=== PATIENT | female | born 1975 | race Caucasian/White ===

== ENCOUNTER 2018-02-22 14:47 | Outpatient (CLI) | payer OTHER, SELFPAY ==
--- NOTE | 2018-02-22 15:34 | DI.MAMMO_ITS ---
SYMPTOM/DIAGNOSIS: SCREENING, FAMILY H/O BREAST AND OVARIAN CA MAMMOGRAMS: Mammograms were interpreted according to the usual protocol including computer analysis with CAD system, tomosynthesis and C view imaging. Comparison is made with prior examinations. Breast density, Category B. No masses or microcalcifications are seen. There is nothing to suggest malignancy. IMPRESSION: Negative mammogram. Routine screening is recommended. Category 1. MQSA ASSESSMENT OF FINDINGS: Negative. Category 1. Patient will receive a letter notifying them of these results. BI-RADS category B. There are scattered areas of fibroglandular density.
== END 2018-02-22 15:07 ==
PROVIDERS: PCP Student in an Organized Health Care Education/Training Program; Visit Provider Student in an Organized Health Care Education/Training Program
DX: Z12.31 Encounter for screening mammogram for malignant neoplasm of breast (principal); Z80.3 Family history of malignant neoplasm of breast; Z80.41 Family history of malignant neoplasm of ovary
CPT/HCPCS: 77063; 77067

== ENCOUNTER 2018-07-20 09:13 | Emergency (ER) | payer MEDICAID, SELFPAY ==
--- NOTE | 2018-07-20 09:19 | NUR.NOTE ---
pt states that she has a nervice picking habit. she picked a sore on the right cheek the other day and notices that it has gotten reddened and swollen
[2018-07-20 09:20] VITALS: BP 171/91; PULSE 94; RESP 18; TEMP 37; O2SAT 98
--- NOTE | 2018-07-20 09:20 | ED.GENADUL_ITS ---
Discharge Plan Disposition Patient Disposition: HOME Condition: Good Discharge Details Chief Complaint: GenMedical Clinical Impression: Cellulitis Primary Care Provider: Monica Billy ED Provider: Chris Alcaraz Home Meds and New Rx's Prescriptions: New doxycycline hyclate 100 mg tablet,delayed release (DR/EC) 100 mg PO BID 10 Days Qty: 20 RF: 0 mupirocin 2 % ointment 1 applic TP TID Qty: 15 RF: 0 No Action metformin 500 MG tablet 500 mg PO BID RF: 0 levothyroxine 100 MCG tablet 100 mcg PO DAILY RF: 0 bupropion HCl 150 MG tablet extended release 24 hr 150 mg PO BID RF: 0 losartan 50 MG tablet 1 tab PO DAILY RF: 0 glipizide 5 MG tablet 1 tab PO DAILY RF: 0 Discharge Instructions Instructions: Cellulitis (ED) Additional Instructions: Please take the antibiotic as directed. Please apply the cream 3 times daily as directed. Please keep your nails clipped short, and please stop trying to scrat ch at the areas of infection as this may make it worse. If you notice any worsening of your symptoms, or any new symptoms such as vomiting, diarrhea, fever, chills, shortness of breath, chest pain, numbness, weakness, or fainting , please return immediately to the emergency department for reevaluation. Please follow up with your primary care provider as soon as possible for reassessment and reevaluation. As always, it was a pleasure participating in your medical care today. Referrals: Monica Billy [Primary Care Provider] - Medical Decision Making This is a pleasant 42-year-old female who presents for evaluation of a small sore on the right side of her face. She has a nervous tic, and so she picks at her face often. Physical exam demonstrates a small cellulitic lesion on her right cheek, in addition to a few other small scabbed lesions on her face. She does not use methamphetamines. Nails are bitten, but otherwise relatively short. Fingers are clean. Exam demonstrates no evidence of abscess, but there is mild cellulitis. Minimal crusting around all lesions concerning for mild impetigo. Vital signs are stable and reassuring with no evidence of sepsis. With no signs of an abscess there is no indication for incision and drainage at this time. We will prescribe topical mupirocin, as well as oral doxycycline. I have chosen doxycycline over Bactrim since the patient is on an GISELE/arb, and worried about potential interaction. We discussed the importance of stopping scratching, the importance of closely trim nails, and the importance of medication adherence and close follow-up. We discussed red flags which return I have extensively reviewed the treatment plan and discharge instructions with the patient. I have addressed all patient concerns at this time. The patient was made aware of what symptoms to monitor for that would warrant a return to the emergency department. Discussed the plan with the patient, they demonstrate verbal understanding and agreement with our assessment and plan at this time. . HPI General Date/Time Provider Initiated Documentation: 07/20/18 09:17 . HPI Narrative: This is a 42-year-old female with a past medical history of a nervous tic where she scratches her face, who presents today with a small area of infection on the right side of her cheek. Patient states she has had these before, this 1 is gotten worse over the last 1-2 days. She denies any significant discharge, fever, chills, headache, chest pain, shortness of breath, numbness tingling, weakness, vomiting or diarrhea. She denies any other modifying factors. She has not been on antibiotics recently. No other complaints at this time. Related Data Home Medications Medication Instructions Recorded Confirmed bupropion HCl 150 mg PO BID 08/31/13 07/20/18 levothyroxine 100 mcg PO DAILY 08/31/13 07/20/18 metformin 500 mg PO BID 08/31/13 07/20/18 glipizide 1 tab PO DAILY 03/18/15 07/20/18 losartan 1 tab PO DAILY 03/18/15 07/20/18 doxycycline hyclate 100 mg PO BID 10 Days #20 tab 07/20/18 mupirocin 1 applic TP TID #15 gm 07/20/18 Previous Rx's Medication Instructions Recorded doxycycline hyclate 100 mg PO BID 10 Days #20 tab 07/20/18 mupirocin 1 applic TP TID #15 gm 07/20/18 Allergies Allergy/AdvReac Type Severity Reaction Status Date / Time lisinopril AdvReac Mild cough Unverified 07/20/18 09:22 Review of Systems Review of Systems All systems reviewed & are unremarkable except as noted in HPI and below PFSH Social History Smoking/Tobacco Use Status: Never Alcohol Intake: never Drug use: Never Substance use type: does not use Do you feel safe at home: Yes Do you feel safe in your relationship?: Yes Exam Narrative Exam Narrative: 1.Const: Well-nourished, Well-developed, appearing stated age 2.Eyes: PERRL, no conjunctival injection, and symmetrical lids. 3.ENT: Atraumatic external nose and ears. Moist MM. Neck: Symmetric, trachea midline, No thyromegaly. 4.CVS: +S1/S2, No murmurs or gallops. Peripheral pulses 2+ and equal in all extremities. Brisk capillary refill in all extremities. 5.RESP: Unlabored respiratory effort. Clear to auscultation bilaterally. No wheezes rales or rhonchi 6.GI: Soft, Nontender/Nondistended, No hepatosplenomegaly. No guarding or tres ound. 7.MSK: Normocephalic/Atraumatic, Extremities w/o deformity or ttp No cyanosis or clubbing, Normal movement of all extremities 8.Skin: Warm, Dry. A few small scabbed over lesions on the face, a small area of erythema, redness and firmness on the right cheek, no evidence of fluctuance. No evidence of abscess or discharge. Diameter is roughly 1.5-2 cm. No spreading of the redness over the rest of the face. 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 Sensation grossly intact, no focal neurologic deficits. 10.Psych: (AAO) x3. Appropriate mood and affect
[2018-07-20 09:30] VITALS: BP 171/91; PULSE 94; RESP 18; TEMP 37; O2SAT 98
== END 2018-07-20 09:30 | disposition home or self-care (01) ==
LOC: ER 09:23
PROVIDERS: Emergency Provider Student in an Organized Health Care Education/Training Program; PCP Student in an Organized Health Care Education/Training Program
DX: L03.811 Cellulitis of head [any part, except face] (principal)
CPT/HCPCS: 99283

== ENCOUNTER 2018-11-26 12:23 | Emergency (ER) | payer OTHER, MEDICAID, SELFPAY ==
[2018-11-26] VITALS (18 sets, daily range): BP systolic 143–178; BP diastolic 78–93; PULSE 86–99; RESP 16–27; TEMP 36.6–36.8; O2SAT 95–98
[2018-11-26 12:52] LABS: Abs Immature Grans 0.02 k/cumm (0.0-0.09); Absolute Basophil Count 0.03 k/cumm (0.0-0.2); Absolute Eosinophil Count 0.15 k/cumm (0.0-0.7); Absolute Lymphocyte Count 1.88 k/cumm (1.2-3.4); Absolute Monocyte Count 0.46 k/cumm (0.11-0.7); Absolute Neutrophil Count 3.13 k/cumm (1.2-6.7); Basophils % 0.5; Eosinophils % 2.6; HCT 41.2 % (36.0-46.0); HGB 14.4 g/dL (12.0-15.5); Immature Grans % 0.4; Lymphocytes % 33.2; Mean Corpuscular Hemoglobin 30.6 pg (27.0-33.0); Mean Corpuscular Volume 87.5 fL (80-95); Monocytes % 8.1; Neutrophils % 55.2; Platelet Count 243 x1000/uL (130-400); RBC 4.71 m/cumm (4.00-5.20); RBC Distribution Width 12.6 % (11.7-14.6); White Blood Cell Count 5.67 k/cumm (4.4-10.8)
--- NOTE | 2018-11-26 12:56 | ED.GENADUL_ITS ---
Discharge Plan Disposition Patient Disposition: HOME Condition: Stable Discharge Details Chief Complaint: Abd Prob Clinical Impression: Atypical chest pain, Chest wall pain Primary Care Provider: Monica Billy ED Provider: Leonila Haywood Home Meds and New Rx's Prescriptions: Continued metformin 500 MG tablet 1,000 mg PO BID RF: 0 levothyroxine 100 MCG tablet 100 mcg PO DAILY RF: 0 bupropion HCl 150 MG tablet extended release 24 hr 150 mg PO BID RF: 0 losartan 50 MG tablet 1 tab PO DAILY RF: 0 glipizide 5 MG tablet 1 tab PO DAILY RF: 0 Discharge Instructions Instructions: Chest Wall Pain (ED) Additional Instructions: Alternate Tylenol and Motrin as needed and directed for pain. Follow-up with your primary care doctor next week for reevaluation and for referral for outpatient stress test if your symptoms do not improve. Return immediately to the emergency department if you develop any worsening or new concerning symptoms. Discharge Data Discharge Date/Time-TO BE ENTERED AT DEPARTURE: 11/26/18 15:50 Discharge Physician: Leonila Haywood Medical Decision Making 1230 -- 43yo F w/ a h/o DM, HTN, HLD, depression w/ c/o indigestion and pulled muscle in her chest for the past 4 days. Denies associated symptoms. Denies any chest pain at present. Her BP is hypertensive 178/93. She appears quite anxious and states she was nervous to be advised to come to the ED. Her midline chest is tender to touch. Distal pulses intact. EKG notes a rate of 93, sinus, no acute ST ischemic changes -nondiagnostic. Differential diagnoses includes acs, pe, costochondritis, gerd. Denies tearing sensation or radiation to back, so appears less likely dissection. She has reproducible pain that's worse with movement so may be more musculoskeletal. She has intermittent radiation to neck which may be associated with musculoskeletal pain but will do cardiac workup and obtain CT chest to r/o pe/dissection. Will give a gi cocktail and bolus IVF and if ct negative, will give toradol. 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 1500 -- Labs and imaging reviewed and unremarkable. Troponin negative. Glucose elevated at 301. Lipase normal. CT negative for PE or dissection. -- Patient is requesting to go home. She is declining to stay for repeat troponin and was offered admission but declines. She had complete relief of her symptoms with GI cocktail. She is advised to follow-up with her primary care doctor for reevaluation and for referral for outpatient stress test if symptoms persist. She is advised to return here immediately with any worsening or conc erning symptoms. Medical Records Medical records reviewed: Yes I reviewed the patient's medical records. Imaging Data Radiologic Study: Radiologist's impression: CT ANGIOGRAPHY, CHEST: CT angiography was performed with multi slice acquisition and multi planar and 3D reconstruction. CT angiography of the chest was performed with a bolus infusion of 100 cc of Omnipaque 350. Images obtained through the upper abdomen show unremarkable appearance of visualized portions of spleen, pancreas, adrenals and kidneys. Note is made of hepatic steatosis. No evidence of pulmonary embolic disease. No thoracic aortic aneurysm or dissection. No mediastinal or hilar adenopathy. Tracheobronchial tree appears intact. The lungs are clear. CONCLUSION: Negative CTA of the chest. No evidence of pulmonary embolic diseas e or thoracic aortic dissection. Lab Data Lab results reviewed: Yes I reviewed the patient's lab results. Laboratory Tests Range/Units 11/26/18 11/26/18 11/26/18 12:40 12:40 12:40 WBC (4.4-10.8) k/cumm 5.67 RBC (4.00-5.20) m/cumm 4.71 Hgb (12.0-15.5) g/dL 14.4 Hct (36.0-46.0) % 41.2 MCV (80-95) fL 87.5 MCH (27.0-33.0) pg 30.6 MCHC (32.0-36.0) g/dL 35.0 RDW (11.7-14.6) % 12.6 Plt Count (130-400) x1000/uL 243 MPV (8.0-11.0) fL 11.0 Immature Gran % 0.4 Neutrophils % 55.2 Lymphocytes % 33.2 Monocytes % 8.1 Eosinophils % 2.6 Basophils % 0.5 Absolute Neutrophils (1.2-6.7) k/cumm 3.13 Absolute Lymphocytes (1.2-3.4) k/cumm 1.88 Absolute Monocytes (0.11-0.7) k/cumm 0.46 Absolute Eosinophils (0.0-0.7) k/cumm 0.15 Absolute Basophils (0.0-0.2) k/cumm 0.03 Sodium (136-145) mmol/L 137 Potassium (3.5-5.1) mmol/L 3.7 Chloride (98-107) mmol/L 100 Carbon Dioxide (21.0-32.0) mmol/L 25.8 Anion Gap (3-11) mmol/L 11.2 H BUN (7-18) mg/dL 13 Creatinine (0.55-1.02) mg/dL 0.70 Estimated GFR/1.73 m2 (mL/min/1.73m2) >= 60.00 Glucose (70-100) mg/dL 301 H Calcium (8.5-10.1) mg/dL 9.0 Magnesium (1.8-2.4) mg/dL 1.7 L Total Bilirubin (0.2-1.0) mg/dL 0.3 0.3 Conjugated Bilirubin (0.00-0.20) mg/dL 0.08 AST (15-37) U/L 18 21 ALT (12-78) U/L 46 45 Alkaline Phosphatase (46-116) U/L 81 87 Troponin I (0.00-0.06) ng/mL < 0.05 Total Protein (6.4-8.2) g/dL 8.2 8.1 Albumin (3.4-5.0) g/dL 3.9 3.9 Lipase (73-393) U/L 118 Serum HCG, Qual Range/Units 11/26/18 12:40 WBC (4.4-10.8) k/cumm RBC (4.00-5.20) m/cumm Hgb (12.0-15.5) g/dL Hct (36.0-46.0) % MCV (80-95) fL MCH (27.0-33.0) pg MCHC (32.0-36.0) g/dL RDW (11.7-14.6) % Plt Count (130-400) x1000/uL MPV (8.0-11.0) fL Immature Gran % Neutrophils % Lymphocytes % Monocytes % Eosinophils % Basophils % Absolute Neutrophils (1.2-6.7) k/cumm Absolute Lymphocytes (1.2-3.4) k/cumm Absolute Monocytes (0.11-0.7) k/cumm Absolute Eosinophils (0.0-0.7) k/cumm Absolute Basophils (0.0-0.2) k/cumm Sodium (136-145) mmol/L Potassium (3.5-5.1) mmol/L Chloride (98-107) mmol/L Carbon Dioxide (21.0-32.0) mmol/L Anion Gap (3-11) mmol/L BUN (7-18) mg/dL Creatinine (0.55-1.02) mg/dL Estimated GFR/1.73 m2 (mL/min/1.73m2) Glucose (70-100) mg/dL Calcium (8.5-10.1) mg/dL Magnesium (1.8-2.4) mg/dL Total Bilirubin (0.2-1.0) mg/dL Conjugated Bilirubin (0.00-0.20) mg/dL AST (15-37) U/L ALT (12-78) U/L Alkaline Phosphatase (46-116) U/L Troponin I (0.00-0.06) ng/mL Total Protein (6.4-8.2) g/dL Albumin (3.4-5.0) g/dL Lipase (73-393) U/L Serum HCG, Qual Negative ECG Data Attestation: I personally reviewed and interpreted this ECG (s) as follows: Interpretation: Rate of 93, sinus, minimal T wave inversion in V5 which is seen in previous EKG. No acute ST elevation or depression. QTc 455. QRS 108. HPI General Mode of arrival: ambulatory . Date/Time Provider Initiated Documentation: 11/26/18 12:27 . Limitations to Documentation: no limitations . Information obtained by: patient . HPI Narrative: Patient is a 43-year-old female with history of diabetes, hypertension, hyperlipidemia, depression and obesity who presents with a sensation of indigestion and pulled muscle in her chest for the past 4 days. She states she thought her symptoms felt like heartburn as she was also having associated burping for the past several days. She states she feels like she also may have pulled a muscle as her pain is worse with deep breath and when she bends over. She states the pain initially was constant and now is intermittent. She describes it as aching and 6/10 at its worse and 1/10 at its best. She denies any pain at present. She states this morning she was bending over picking up toys and developed pain in her mid chest which is radiating up to both sides of her neck. She denies any known injury. She took Tums without relief. She denies any recent surgery, recent travel, fever, nausea, vomiting, dizziness, shortness of breath or coughing. She states her sugars have been high lately between 180 and 250. She states she missed 2 days of her diabetes meds earlier this week due to her indigestion feeling. Related Data Home Medications Medication Instructions Recorded Confirmed bupropion HCl 150 mg PO BID 08/31/13 07/20/18 levothyroxine 100 mcg PO DAILY 08/31/13 11/26/18 metformin 1,000 mg PO BID 08/31/13 11/26/18 glipizide 1 tab PO DAILY 03/18/15 11/26/18 losartan 1 tab PO DAILY 03/18/15 11/26/18 Allergies Allergy/AdvReac Type Severity Reaction Status Date / Time lisinopril AdvReac Mild cough Unverified 07/20/18 09:22 General Stated Complaint: Abd Prob YAMILKA: 4 Review of Systems Review of Systems All systems reviewed & are unremarkable except as noted in HPI and below Constitutional Reports as per HPI, Denies chills and Denies fever(s) Eyes Denies blurry vision ENT Denies dizziness, Denies sore throat and Denies throat swelling Cardiovascular Denies chest pain and Denies dyspnea Respiratory Denies cough and Denies dyspnea Gastrointestinal Denies abdominal pain, Denies diarrhea and Denies vomiting Genitourinary Denies hematuria and Denies dysuria Musculoskeletal Denies back pain and Denies numbness Integumentary/Breasts Denies lesions and Denies rash Neurologic Denies dizziness, Denies focal weakness and Denies numbness Allergic/Immunologic Denies throat swelling [facility] Medical History Depression (Chronic) Diabetes (Chronic) HTN (hypertension) (Chronic) Hx of hyperlipidemia (Acute) Surgical History No significant past surgical history (Acute) Social History (Reviewed 11/26/18 @ 12:58 by TAMIKO Interiano Smoking/Tobacco Use Status: Never Alcohol Intake: never Drug use: Never Substance use type: does not use Do you feel safe at home: Yes Do you feel safe in your relationship?: Yes Exam Const General: cooperative, healthy appearing and no acute distress HENMT Head: normal to inspection Face and sinus: normal facial exam Eyes General: appearance normal, both eyes and all related structures Pupils: PERRL EOM: EOM intact bilaterally Neck Neck: normal visual inspection and No submandibular swelling Lymphatic: no lymphadenopathy noted Chest Chest: normal inspection of the chest Chest/axillae images: 1. Midline chest tender to palpation. No evidence of rash, trauma, infection. Resp Effort & Inspection: normal respiratory effort and able to speak in complete sentences Auscultation: clear to auscultation bilaterally Cardio Rate: regular rate Rhythm: regular rhythm GI Inspection: normal to inspection Palpation: soft, not firm, not rigid and nontender Auscultation: normal bowel sounds Back/Spine/Pelvis Thoracic/Lumbar Spine: thoracic and lumbar spine normal to inspection Skin General skin exam: no rashes or lesions noted Neuro General: alert, awake and oriented x3 Cognition: normal cognition Speech: speech normal Motor: muscle tone normal throughout Sensory Exam: no sensory deficits noted Extrem General: normal to inspection, full ROM, normal capillary refill, no calf tenderness bilaterally and no edema Other: B/L radial/ulnar pulses intact. Psych Appearance: grossly normal Mental Status: mental status grossly normal Speech and Movement: speech and movement normal Affect: normal affect Course Vital Signs Temperature 97.9 F 11/26/18 12:31 Pulse 93 H 11/26/18 12:31 Respiratory Rate 16 11/26/18 12:31 Blood Pressure 178/93 H 11/26/18 12:31 Pulse Oximetry 98 11/26/18 12:31 Temperature 97.9 F 11/26/18 12:31 Temperature Source Skin 11/26/18 12:31 Pulse 93 H 11/26/18 12:31 Respiratory Rate 16 11/26/18 12:31 Respiratory Effort Non-Labored 11/26/18 12:34 Blood Pressure 178/93 H 11/26/18 12:31 Pulse Oximetry 98 11/26/18 12:31 Oxygen Delivery Method Room Air 11/26/18 12:31 Oxygen Flow Rate 0 11/26/18 12:31 Lab/Test Results Lab/Test Results: Laboratory Tests Range/Units 11/26/18 12:40 WBC (4.4-10.8) k/cumm 5.67 RBC (4.00-5.20) m/cumm 4.71 Hgb (12.0-15.5) g/dL 14.4 Hct (36.0-46.0) % 41.2 MCV (80-95) fL 87.5 MCH (27.0-33.0) pg 30.6 MCHC (32.0-36.0) g/dL 35.0 RDW (11.7-14.6) % 12.6 Plt Count (130-400) x1000/uL 243 MPV (8.0-11.0) fL 11.0 Immature Gran % 0.4 Neutrophils % 55.2 Lymphocytes % 33.2 Monocytes % 8.1 Eosinophils % 2.6 Basophils % 0.5 Absolute Neutrophils (1.2-6.7) k/cumm 3.13 Absolute Lymphocytes (1.2-3.4) k/cumm 1.88 Absolute Monocytes (0.11-0.7) k/cumm 0.46 Absolute Eosinophils (0.0-0.7) k/cumm 0.15 Absolute Basophils (0.0-0.2) k/cumm 0.03
[2018-11-26] MEDS: Normal Saline 1,000 ML 1000 ML IV (12:58)
[2018-11-26 13:10] LABS: ALT 46 U/L (12-78); AST 18 U/L (15-37); Albumin 3.9 g/dL (3.4-5.0); Alkaline Phosphatase 81 U/L (46-116); Bilirubin, Direct 0.08 mg/dL (0.00-0.20); Bilirubin, Total 0.3 mg/dL (0.2-1.0); Lipase 118 U/L (73-393); Magnesium 1.7 mg/dL (1.8-2.4); Total Protein 8.2 g/dL (6.4-8.2)
[2018-11-26 13:11] LABS: ALT 45 U/L (12-78); AST 21 U/L (15-37); Albumin 3.9 g/dL (3.4-5.0); Alkaline Phosphatase 87 U/L (46-116); Anion Gap 11.2 mmol/L (3-11); BUN 13 mg/dL (7-18); Bilirubin, Total 0.3 mg/dL (0.2-1.0); CO2 25.8 mmol/L (21.0-32.0); Chloride 100 mmol/L (98-107); Glucose 301 mg/dL (70-100); Potassium 3.7 mmol/L (3.5-5.1); Sodium 137 mmol/L (136-145); Total Protein 8.1 g/dL (6.4-8.2); Troponin I < 0.05 ng/mL (0.00-0.06)
--- NOTE | 2018-11-26 13:33 | NUR.NOTE ---
Nursing Note: pt reports a relief in symptoms after mylanta administration
[2018-11-26 13:53] LABS: HCG Qual (Serum) Negative
[2018-11-26] MEDS: Omnipaque 350 MG/ML 100 ML BTL IJ (14:38)
--- NOTE | 2018-11-26 14:38 | DI.CT_ITS ---
SYMPTOMS/DIAGNOSIS: CHEST PAIN RADIATES TO BILATERAL NECK, ? OBSTRUCTION CT ANGIOGRAPHY, CHEST: CT angiography was performed with multi slice acquisition and multi planar and 3D reconstruction. CT angiography of the chest was performed with a bolus infusion of 100 cc of Omnipaque 350. Images obtained through the upper abdomen show unremarkable appearance of visualized portions of spleen, pancreas, adrenals and kidneys. Note is made of hepatic steatosis. No evidence of pulmonary embolic disease. No thoracic aortic aneurysm or dissection. No mediastinal or hilar adenopathy. Tracheobronchial tree appears intact. The lungs are clear. CONCLUSION: Negative CTA of the chest. No evidence of pulmonary embolic disease or thoracic aortic dissection.
--- NOTE | 2018-11-26 15:50 | NUR.NOTE ---
iv removed dc reviewed pt able to verblize understanding Nursing Note:
== END 2018-11-26 15:50 | disposition home or self-care (01) ==
PROVIDERS: Emergency Provider Physician Assistant; PCP Student in an Organized Health Care Education/Training Program
DX: R07.81 Pleurodynia (principal); E11.65 Type 2 diabetes mellitus with hyperglycemia; Z79.84 Long term (current) use of oral hypoglycemic drugs; I10 Essential (primary) hypertension
CPT/HCPCS: 36415; 71275; 80053; 80076; 81025; 83690; 93005; 96360; 99285; 81003; 83735; 84484; 84703; 85025; 93010; J3490

== ENCOUNTER 2018-11-30 22:35 | Emergency (ER) | payer MEDICAID, OTHER, SELFPAY ==
[2018-12-01] VITALS (24 sets, daily range): BP systolic 133–149; BP diastolic 74–83; PULSE 82–105; RESP 17–24; O2SAT 93–97
--- NOTE | 2018-12-01 00:56 | W.ED.GENAD ---
Discharge Plan Disposition Patient Disposition: HOME Condition: Improving Discharge Details Chief Complaint: Palpitatns Clinical Impression: New onset atrial fibrillation Primary Care Provider: Monica Billy ED Provider: Leonila Haywood Home Meds and New Rx's Prescriptions: New metoprolol succinate 25 mg tablet extended release 24 hr 25 mg PO BID 30 Days Qty: 60 RF: 0 Eliquis 5 mg tablet 5 mg PO BID 30 Days Qty: 60 RF: 0 Continued metformin 500 MG tablet 1,000 mg PO BID RF: 0 levothyroxine 100 MCG tablet 100 mcg PO DAILY RF: 0 bupropion HCl 150 MG tablet extended release 24 hr 150 mg PO BID RF: 0 losartan 50 MG tablet 1 tab PO DAILY RF: 0 glipizide 5 MG tablet 1 tab PO DAILY RF: 0 Discharge Instructions Instructions: Atrial Fibrillation (ED) Additional Instructions: Call your primary care doctor tomorrow morning to schedule follow-up appointment for reevaluation and for referral for outpatient echocardiogram and to discuss whether you would like to proceed with starting anticoagulation medicine (blood thinners). Call a general assignment reporter to schedule a follow-up appointment for reevaluation. Return immediately to the emergency department if you develop any worsening or new concerning symptoms. Discharge Data Discharge Date/Time-TO BE ENTERED AT DEPARTURE: 12/01/18 04:11 Discharge Physician: Leonila Haywood Medical Decision Making Patient seen during downtime and chart completed once downtime over . Labs and imaging not populated in chart. 43-year-old female with a history of diabetes, hypertension, hyperlipidemia, depression who presents with sudden onset of shortness of breath and palpitations that started 45 minutes prior to arrival while laying in bed. Of note, patient was seen here a few days ago for chest pain and had negative cardiac work-up and was discharged home with recommendation to follow-up with her primary care doctor. She denies chest pain, alcohol or drug use, any other new medications. Heart rate 160s. Blood pressure hypertensive, 155/116. EKG noted a rate of 160s and atrial fibrillation, no acute ST changes. Appears consistent with new onset A. fib. Pt agreeable to cardioversion. Patient was given 100 mcg of fentanyl IV. She had synchronized cardioversion at 100 J. Heart rate decreased into the 90s. Repeat EKG noted sinus rhythm and rate of 96. Labs and imaging reviewed. Troponin negative. Glucose 328. Normal bicarb. Magnesium 1.4, will replete. Normal coagulation studies. Normal hemoglobin and white blood cell count. Lactate 2.8 which was likely a stress response or dehydration as she has no signs of acute infection with no fever. Chest x-ray negative. 0145 -- d/w [facility] cardiology - recommends metoprolol 25mg PO BID, follow-up with the primary care doctor and cardiology, echocardiogram, and if patient agreeable she can start Eliquis 5 mg twice daily or discuss this with her primary care doctor. 0330 --TSH obtained and noted to be high. Patient was advised to follow-up with her primary care doctor for reevaluation including discussing whether to start Eliquis, repeat thyroid studies and consider changing her Synthroid dose, and echocardiogram Patient was given 1 dose of metoprolol here. Heart rate remained 80s. Blood pressure improved, 140s/70s. She has no acute complaints and feels good to go home. She was given a prescription for metoprolol and Eliquis. She was advised to return here with any concerns. Medical Records Medical records reviewed: Yes I reviewed the patient's medical records. Imaging Data Radiologic Study: Radiologist's impression: CXR: negative Lab Data Lab results reviewed: Yes I reviewed the patient's lab results. ECG Data Attestation: I personally reviewed and interpreted this ECG (s) as follows: Interpretation: 2353: #1 - rate of 166, afib, < 1mm ST depression in I and V6. TWI in aVL, seen in previous. No acute ST elevation. QTc 462, QRS 85. 0042: #2 - after cardioversion - rate of 96, sinus, does not appear c/w atrial flutter, TWI in aVL, seen in previous. No acute ST elevation or depression seen. QTc 485. QRS 106. HPI General Mode of arrival: ambulatory. Date/Time Provider Initiated Documentation: 12/01/18 00:56. Limitations to Documentation: no limitations. Information obtained by: patient. HPI Narrative: Patient is a 43-year-old female who presents the ED with a complaint of palpitations that started while laying in bed within the past 45 minutes prior to arrival. Patient states she was lying in bed when she felt her heart racing and shortness of breath. She states she felt fine going to bed and denies any chest pain, shortness of breath or palpitations earlier today or any time in the past few weeks or months. She denies any known history of heart arrhythmia. She states she otherwise had been feeling well prior to bed tonight. She denies any fever, cough, chest pain. She denies any new medications or supplements, energy drinks or caffeine. Related Data Home Medications Medication Instructions Recorded Confirmed bupropion HCl 150 mg PO BID 08/31/13 07/20/18 levothyroxine 100 mcg PO DAILY 08/31/13 11/26/18 metformin 1,000 mg PO BID 08/31/13 11/26/18 glipizide 1 tab PO DAILY 03/18/15 11/26/18 losartan 1 tab PO DAILY 03/18/15 11/26/18 apixaban [Eliquis] 5 mg PO BID 30 Days #60 tab 12/01/18 metoprolol succinate 25 mg PO BID 30 Days #60 tab 12/01/18 Previous Rx's Medication Instructions Recorded apixaban [Eliquis] 5 mg PO BID 30 Days #60 tab 12/01/18 metoprolol succinate 25 mg PO BID 30 Days #60 tab 12/01/18 Allergies Allergy/AdvReac Type Severity Reaction Status Date / Time lisinopril AdvReac Mild cough Unverified 07/20/18 09:22 General YAMILKA: 4 Review of Systems Review of Systems All systems reviewed & are unremarkable except as noted in HPI and below Constitutional Reports as per HPI, Denies chills and Denies fever(s) Eyes Denies blurry vision ENT Denies dizziness, Denies sore throat and Denies throat swelling Cardiovascular Denies chest pain and Reports dyspnea Respiratory Denies cough and Reports dyspnea Gastrointestinal Denies abdominal pain, Denies diarrhea and Denies vomiting Genitourinary Denies hematuria and Denies dysuria Musculoskeletal Denies back pain and Denies numbness Integumentary/Breasts Denies lesions and Denies rash Neurologic Denies dizziness, Denies focal weakness and Denies numbness Allergic/Immunologic Denies throat swelling COUNTS INCLUDE 234 BEDS AT THE [facility] Social History Smoking/Tobacco Use Status: Never Alcohol Intake: never Drug use: Never Substance use type: does not use Do you feel safe at home: Yes Do you feel safe in your relationship?: Yes Exam Const General: cooperative, healthy appearing and anxious Orientation: alert, awake and oriented x3 HENMT Head: normal to inspection Ears: hearing grossly normal bilaterally, external ears normal and TM's normal bilaterally General nose exam: external nose normal Face and sinus: normal facial exam Mouth: oral mucosae normal Teeth and gingiva: dentition normal Throat: posterior oropharynx normal Eyes General: appearance normal, both eyes and all related structures Eyelids: eyelids normal Pupils: PERRL EOM: EOM intact bilaterally Neck Neck: normal visual inspection Lymphatic: no lymphadenopathy noted Chest Chest: normal inspection of the chest Resp Effort & Inspection: normal respiratory effort and able to speak in complete sentences Auscultation: clear to auscultation bilaterally Cardio Rate: tachycardic Rhythm: abnormal rhythm irregularly irregular GI Inspection: normal to inspection and obesity Palpation: soft, not firm, no guarding, no hepatosplenomegaly, no masses and nontender Auscultation: normal bowel sounds Skin General skin exam: no rashes or lesions noted Neuro General: alert and awake Cognition: normal cognition Speech: speech normal Gait: normal gait Motor: muscle tone normal throughout Sensory Exam: no sensory deficits noted Extrem General: normal to inspection, full ROM and no edema Psych Appearance: grossly normal Mental Status: mental status grossly normal Speech and Movement: speech and movement normal Affect: normal affect Thought Process: normal Critical Care Time Total Critical Care Time: 20
--- NOTE | 2018-12-01 01:04 | DI.RAD_ITS ---
SYMPTOMS/DIAGNOSIS: PALPITATIONS PORTABLE SEMIERECT CHEST: Comparison is made with [id number]. The heart is somewhat obscured by overlying leads. The visualized portions of the lungs appear clear. No pneumothorax or rib fracture is identified. IMPRESSION: Negative portable chest. The exam is somewhat limited by overlying leads.
[2018-12-01] MEDS: Metoprolol 25 MG TAB PO (02:00)
[2018-12-01] MEDS: Magnesium Oxide 400 MG TAB 800 MG PO (04:11)
[2018-12-01 05:56] LABS: TSH (W/Ref FT4) 3.93 uIU/mL (0.36-3.74)
[2018-12-01 06:13] LABS: INR 0.9 (0.9-1.1); PTT Activated 22.1 sec (21.0-31.4)
[2018-12-01 06:16] LABS: BUN 15 mg/dL (7-18); CREATININE 0.75 mg/dL (0.55-1.02); Calcium 8.1 mg/dL (8.5-10.1); Glucose 328 mg/dL (70-100); Lactate 2.8 mmol/L (0.6-1.4)
[2018-12-01 06:17] LABS: ALT 50 U/L (12-78); AST 22 U/L (15-37); Albumin 4.1 g/dL (3.4-5.0); Alkaline Phosphatase 121 U/L (46-116); Anion Gap 12.7 mmol/L (3-11); Bilirubin, Direct 0.06 mg/dL (0.00-0.20); Bilirubin, Total 0.2 mg/dL (0.2-1.0); CO2 24.3 mmol/L (21.0-32.0); Chloride 100 mmol/L (98-107); Magnesium 1.4 mg/dL (1.8-2.4); Sodium 137 mmol/L (136-145); Total Protein 8.1 g/dL (6.4-8.2); Troponin I < 0.05 ng/mL (0.00-0.06)
[2018-12-01 06:18] LABS: Absolute Lymphocyte Count 2.74 k/cumm (1.2-3.4); Absolute Neutrophil Count 4.63 k/cumm (1.2-6.7); HCT 43.8 % (36.0-46.0); HGB 15.2 g/dL (12.0-15.5); Lymphocytes % 33.7; Mean Corp. HGB Concentration 34.7 g/dL (32.0-36.0); Mean Corpuscular Hemoglobin 29.9 pg (27.0-33.0); Mean Corpuscular Volume 86.2 fL (80-95); Mean Platelet Volume 11.1 fL (8.0-11.0); Neutrophils % 56.9; Platelet Count 268 x1000/uL (130-400); RBC 5.08 m/cumm (4.00-5.20); RBC Distribution Width 12.7 % (11.7-14.6); White Blood Cell Count 8.14 k/cumm (4.4-10.8)
[2018-12-01 06:19] LABS: Abs Immature Grans 0.02 k/cumm (0.0-0.09); Absolute Basophil Count 0.04 k/cumm (0.0-0.2); Absolute Eosinophil Count 0.15 k/cumm (0.0-0.7); Absolute Monocyte Count 0.56 k/cumm (0.11-0.7); Basophils % 0.5; Eosinophils % 1.8; Immature Grans % 0.2; Monocytes % 6.9
[2018-12-01 06:20] LABS: FREE T4 1.14 ng/dL (0.76-1.46)
== END 2018-12-01 04:11 | disposition home or self-care (01) ==
PROVIDERS: Emergency Provider Physician Assistant; PCP Student in an Organized Health Care Education/Training Program
DX: I48.91 Unspecified atrial fibrillation (principal); E83.42 Hypomagnesemia; R94.6 Abnormal results of thyroid function studies; E11.9 Type 2 diabetes mellitus without complications; Z79.84 Long term (current) use of oral hypoglycemic drugs; I10 Essential (primary) hypertension
CPT/HCPCS: 36415; 80048; 80076; 93005; 96361; 96374; 99285; 71045; 83605; 83735; 84439; 84443; 84484; 85025; 85610; 85730; 93010; J3010

== ENCOUNTER 2019-02-22 20:59 | Emergency (ER) | payer OTHER, SELFPAY ==
[2019-02-22 21:04] VITALS: BP 173/80; PULSE 87; RESP 18; TEMP 36.6; O2SAT 97
--- NOTE | 2019-02-22 21:16 | ED.GENADUL_ITS ---
Discharge Plan Disposition Patient Disposition: HOME Condition: Good Discharge Details Chief Complaint: RashLesion Clinical Impression: Traumatic subungual hemorrhage of toe Primary Care Provider: Monica Billy ED Provider: Chris Alcaraz Home Meds and New Rx's Prescriptions: No Action metformin 500 MG tablet 1,000 mg PO BID RF: 0 levothyroxine 100 MCG tablet 100 mcg PO DAILY RF: 0 bupropion HCl 150 MG tablet extended release 24 hr 150 mg PO BID RF: 0 losartan 50 MG tablet 1 tab PO DAILY RF: 0 glipizide 5 MG tablet 1 tab PO DAILY RF: 0 Eliquis 5 mg Tablet 5 mg PO BID RF: 0 Discharge Instructions Instructions: Subungual Hematoma (ED) Additional Instructions: At this time the bleeding has resolved. It may recur again if you elicit any trauma to the toe. Since the nail is partially dislodged there is no indication at this time to cut off the nail, or suture it through. Please take the Keflex that was prescribed by your primary care provider. Please use the toe guard that we gave to you. If you do have a return of your bleeding, please apply gentle pressure with the bandaging that we gave you. It should stop with time and gentle pressure. If you notice any worsening of your symptoms, or any new symptoms such as vomiting, diarrhea, fever, chills, shortness of breath, chest pain, numbness, weakness, or fainting , please return immediately to the emergency department for reevaluation. Please follow up with your primary care provider as soon as possible for reassessment and reevaluation. As always, it was a pleasure participating in your medical care today. Referrals: Monica Billy [Primary Care Provider] - Medical Decision Making This is a pleasant 43-year-old female who was recently diagnosed with atrial fibrillation and now takes Eliquis who presents for bleeding in her left great toe. She did have a slight ingrown toe at that spot, and then the last 2 to 3 days accidentally struck it, causing mild avulsion of the toe. She has had occasional intermittent bleeding because of it. She has been soaking her toe nightly, and has started Keflex as prescribed by her PCP. She had an episode where it began bleeding again tonight after mild trauma, but is resolved by the time she arrived. Exam demonstrates mild coagulated blood but no active bleeding. Tip of the toenail is slightly loose, but the toenail is otherwise still intact and present. We have used a cut and re-engineered finger guard, inverted, to cover the tip of the toe for good protection. We discussed treatment options if the bleeding does occur again including mild pressure, gauze, and the importance of guarding the tip of her toe as much as possible. Recommended continuation of her antibiotics. Discussed red flags which to return. At this time there is no clinical indication for toenail removal, fenestration of the toenail as there is no signs of compartment syndrome or significant pressure from the subungual hematoma which appears to be slightly open. I have extensively reviewed the treatment plan and discharge instructions with the patient and their family. I have addressed all patient concerns at this time. The patient and family was made aware of what symptoms to monitor for that would warrant a return to the emergency department. Discussed the plan with the patient and family, they demonstrate verbal understanding and agreement with our assessment and plan at this time. HPI General Date/Time Provider Initiated Documentation: 02/22/19 21:04 . HPI Narrative: This is a 43-year-old female with newly diagnosed atrial fibrillation on Eliquis who presents today for bleeding in her left great toe. Few days ago the patient stopped the toe which was slightly ingrown at that time, causing it to be partially avulsed. Did cause mild bleeding. She saw her PCP the other day was started on Keflex. She has been soaking it nightly. This evening she was trimming it and did get it very lightly, and did cause some additional bleeding again. With gentle pressure it took 30 minutes to stop. At this time her bleeding is resolved, however she is concerned because of the Eliquis and the bleeding that she did have. She came to the ER for further evaluation and assessment. She denies any fever, chills, redness. She denies any significant pain. She denies any other complaints at this time. She denies any fevers, chills, redness. She denies any other complaints at this time. Related Data Home Medications Medication Instructions Recorded Confirmed bupropion HCl 150 mg PO BID 08/31/13 07/20/18 levothyroxine 100 mcg PO DAILY 08/31/13 11/26/18 metformin 1,000 mg PO BID 08/31/13 11/26/18 glipizide 1 tab PO DAILY 03/18/15 11/26/18 losartan 1 tab PO DAILY 03/18/15 11/26/18 apixaban [Eliquis] 5 mg PO BID 02/22/19 02/22/19 Allergies Allergy/AdvReac Type Severity Reaction Status Date / Time lisinopril AdvReac Mild cough Unverified 02/22/19 21:08 General Stated Complaint: RashLesion YAMILKA: 5 Review of Systems All systems reviewed & are unremarkable except as noted in HPI and below PFSH Social History Smoking/Tobacco Use Status: Never Alcohol Intake: current Alcohol Intake frequency: holidays/special occasions only Drug use: Never Substance use type: does not use Do you feel safe at home: Yes Do you feel safe in your relationship?: Yes Exam Narrative Exam Narrative: 1.Const: Well-nourished, Well-developed, appearing stated age 2.Eyes: PERRL, no conjunctival injection, and symmetrical lids. 3.ENT: Atraumatic external nose and ears. Moist MM. Neck: Symmetric, trachea midline, No thyromegaly. 4.CVS: +S1/S2, No murmurs or gallops. Peripheral pulses 2+ and equal in all extremities. Brisk capillary refill in all extremities. 5.RESP: Unlabored respiratory effort. Clear to auscultation bilaterally. No wheezes rales or rhonchi 6.GI: Soft, Nontender/Nondistended, No hepatosplenomegaly. No guarding or rebound. 7.MSK: Normocephalic, the patient's left great toe demonstrates an intact toenail which is loose at the tip. No active bleeding. Minimal coagulated blood under the tip of the toe, and the edges. No redness or signs of britney lulitis. No warmth. No evidence of tender subungual hematoma or compartment syndrome at the toe. Brisk capillary refill. Normal sensation, normal movement. 8.Skin: Warm, Dry. No rashes or lesions. 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 Sensation grossly intact, no focal neurologic deficits. 10.Psych: (AAO) x3. Appropriate mood and affect Course Vital Signs Vital signs: Vital Signs Temperature 36.6 C 02/22/19 21:04 Pulse 87 02/22/19 21:04 Respiratory Rate 18 02/22/19 21:04 Blood Pressure 173/80 H 02/22/19 21:04 Pulse Oximetry 97 02/22/19 21:04 Temperature 36.6 C 02/22/19 21:04 Temperature Source Temporal Artery Scan 02/22/19 21:04 Pulse 87 02/22/19 21:04 Respiratory Rate 18 02/22/19 21:04 Respiratory Effort Non-Labored 02/22/19 21:04 Blood Pressure 173/80 H 02/22/19 21:04 Pulse Oximetry 97 02/22/19 21:04 Oxygen Delivery Method Room Air 02/22/19 21:04 Oxygen Flow Rate 0 02/22/19 21:04 Pain Level 3 02/22/19 21:04
[2019-02-22 21:31] VITALS: BP 173/80; PULSE 87; RESP 18; TEMP 36.6; O2SAT 97
== END 2019-02-22 21:30 | disposition home or self-care (01) ==
LOC: ER 21:36
PROVIDERS: Emergency Provider Student in an Organized Health Care Education/Training Program; PCP Student in an Organized Health Care Education/Training Program
DX: S90.212A Contusion of left great toe with damage to nail, initial encounter (principal); W22.8XXA Striking against or struck by other objects, initial encounter; I48.91 Unspecified atrial fibrillation; Z79.01 Long term (current) use of anticoagulants
CPT/HCPCS: 99282

== ENCOUNTER 2019-04-06 00:59 | Outpatient (CLI) | payer OTHER, SELFPAY ==
--- NOTE | 2019-04-06 16:07 | DI.MAMMO_ITS ---
EXAM: MG MAMMO SCREENING CLINICAL HISTORY: SCREENING Z12.39, [place] AUTH #[id number] TECHNIQUE: Mammograms were interpreted according to the usual protocol including computer analysis w Amind system, tomosynthesis and C-view imaging. FINDINGS: Thebreasts are of moderate density with fairly symmetrical distribution of fibroglandular tissue. No dominant mass or clumped microcalcification is identified in either breast. Current examination is c ompared with previous examinations including February 2018 and there has been no gross interval avery e in appearance in comparison the previous studies. IMPRESSION: No specific evidence of malignancy at this time. Routine screening examinations are suggested at year ly intervals due to the family history of breast carcinoma. Category 1, breast density category B. BI-RADS Cat 1 - Negative. Breast Density - Category B - Scattered areas of fibroglandular density.
== END 2019-04-06 01:19 ==
PROVIDERS: PCP Student in an Organized Health Care Education/Training Program; Visit Provider Student in an Organized Health Care Education/Training Program
DX: Z12.31 Encounter for screening mammogram for malignant neoplasm of breast (principal); Z80.3 Family history of malignant neoplasm of breast
CPT/HCPCS: 77063; 77067

== ENCOUNTER 2019-04-27 23:09 | Emergency (ER) | payer MEDICAID, SELFPAY ==
--- NOTE | 2019-04-27 23:18 | W.ED.GENAD ---
Discharge Plan Disposition Patient Disposition: HOME Condition: Good Discharge Details Chief Complaint: Cellulitis Clinical Impression: Abscess Primary Care Provider: Monica Billy ED Provider: Chris Alcaraz Home Meds and New Rx's Prescriptions: New doxycycline hyclate 100 mg tablet 100 mg PO BID Qty: 20 RF: 0 No Action metformin 500 MG tablet 1,000 mg PO BID RF: 0 levothyroxine 100 MCG tablet 100 mcg PO DAILY RF: 0 bupropion HCl 150 MG tablet extended release 24 hr 150 mg PO BID RF: 0 losartan 50 MG tablet 1 tab PO DAILY RF: 0 Trulicity 1.5 mg/0.5 mL Pen Injector 1.5 mg SUBCUT RF: 0 acetaminophen 500 mg Tablet 1,000 mg PO PRN PRNRF: 0 metoprolol tartrate 50 mg Tablet PO DAILY AM RF: 0 Eliquis 5 mg Tablet 5 mg PO BID RF: 0 Discharge Instructions Instructions: Abscess (ED) Additional Instructions: Please take the antibiotic as directed and make sure to take it with food, and avoid any dairy products while taking the medication. If you take it without food he may become very nauseous and vomit.. Please take Tylenol and Motrin as needed for pain. Please continue to apply warm compress to the area as needed. If you notice any worsening of your symptoms, or any new symptoms such as vomiting, diarrhea, fever, chills, shortness of breath, chest pain, numbness, weakness, or fainting , please return immediately to the emergency department for reevaluation. Please follow up with your primary care provider as soon as possible for reassessment and reevaluation. As always, it was a pleasure participating in your medical care today. Referrals: Monica Billy [Primary Care Provider] - Medical Decision Making This is a pleasant 43-year-old female who presents with a lesion on her left lower lip that is been present for the last 24 to 48 hours. She has a history of small abscesses, usually secondary to picking but denies any picking this time. Exam demonstrates an area of fluctuant swelling tenderness and mild edema on the left lower aspect of the lip. No evidence of extension into the remainder of the skin or soft tissue. No evidence of airway compromise, Damian's angina, or orbital cellulitis. Lesion is strictly located to the lip itself. We will apply LMX, incised with 18-gauge needle, start the patient on doxycycline and avoid Bactrim secondary to her losartan use. 12:05 AM LMX was used, the patient's lip was anesthetized using this, 18-gauge needle was then used for needle aspiration. Notable amount of purulent discharge was exuded. Swelling notably decreased after this. Patient tolerated this very well. Patient has been giving her first dose of doxycycline here. Continue doxycycline for home use. Discussed red flags for which to return. I have extensively reviewed the treatment plan and discharge instructions with the patient. I have addressed all patient concerns at this time. The patient was made aware of what symptoms to monitor for that would warrant a return to the emergency department. Discussed the plan with the patient, they demonstrate verbal understanding and agreement with our assessment and plan at this time. HPI General Date/Time Provider Initiated Documentation: 04/27/19 23:10. HPI Narrative: This is a pleasant 43-year-old female with a past medical history of hypertension, atrial fibrillation on Eliquis, hypothyroidism who presents today for evaluation of lesion on her left lower lip. Patient has a history of small abscesses in the past, usually secondary to picking. She denies any picking this time states for the last 2 days she has had mild swelling redness tenderness pain in this area. She denies any discharge. She denies fever or chills. No complaints of difficulty swallowing. No other complaints at this time. No other modifying factors. Related Data Home Medications Medication Instructions Recorded Confirmed bupropion HCl 150 mg PO BID 08/31/13 04/27/19 levothyroxine 100 mcg PO DAILY 08/31/13 04/27/19 metformin 1,000 mg PO BID 08/31/13 04/27/19 losartan 1 tab PO DAILY 03/18/15 04/27/19 apixaban [Eliquis] 5 mg PO BID 02/22/19 04/27/19 acetaminophen 1,000 mg PO PRN PRN 04/27/19 04/27/19 doxycycline hyclate 100 mg PO BID #20 tab 04/27/19 dulaglutide [Trulicity] 1.5 mg SUBCUT 04/27/19 metoprolol tartrate PO DAILY AM 04/27/19 Previous Rx's Medication Instructions Recorded doxycycline hyclate 100 mg PO BID #20 tab 04/27/19 Allergies Allergy/AdvReac Type Severity Reaction Status Date / Time lisinopril AdvReac Mild cough Unverified 02/22/19 21:08 General YAMILKA: 5 Review of Systems All systems reviewed & are unremarkable except as noted in HPI and below PFSH Social History Smoking/Tobacco Use Status: Never Alcohol Intake: current Alcohol Intake frequency: holidays/special occasions only Drug use: Never Substance use type: does not use Do you feel safe at home: Yes Do you feel safe in your relationship?: Yes Exam Narrative Exam Narrative: 1.Const: Well-nourished, Well-developed, appearing stated age 2.Eyes: PERRL, no conjunctival injection, and symmetrical lids. 3.ENT: Atraumatic external nose and ears. Moist MM. Neck: Symmetric, trachea midline, No thyromegaly. Patient's lower lip demonstrates swelling edema with fluctuance and tenderness over the left lower aspect of the lower lip. Limited bedside ultrasound demonstrates evidence of small fluid pocket. No evidence of extension to the rest of the face, no evidence of orbital cellulitis, no evidence of Damian's angina. 4.CVS: +S1/S2, No murmurs or gallops. Peripheral pulses 2+ and equal in all extremities. Brisk capillary refill in all extremities. 5.RESP: Unlabored respiratory effort. Clear to auscultation bilaterally. No wheezes rales or rhonchi 6.GI: Soft, Nontender/Nondistended, No hepatosplenomegaly. No guarding or rebound. 7.MSK: Normocephalic/Atraumatic, Extremities w/o deformity or ttp No cyanosis or clubbing, Normal movement of all extremities 8.Skin: Warm, Dry. No rashes or lesions. 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 Sensation grossly intact, no focal neurologic deficits. 10.Psych: (AAO) x3. Appropriate mood and affect Procedures Abscess I/D Site: Lip Side (if applicable): Left Local Anesthetic: Other Anesthetic (LMX) Amount of anesthesia used (mL): 4 Technique: Needle Aspiration Amount of fluid expressed (mL): 2 Irrigation: No Packing used?: None Complications: Bleeding (Which completely subsided after 30 seconds of pressure)
[2019-04-27 23:27] VITALS: BP 177/94; PULSE 86; RESP 16; TEMP 36.5; O2SAT 98
[2019-04-27] MEDS: Lidocaine 4% Cream 5 GM TUBE TP (23:36)
[2019-04-27] MEDS: Doxycycline Hyclate 100 MG CAP PO (23:53)
[2019-04-28 00:09] VITALS: BP 177/94; PULSE 86; RESP 16; O2SAT 98
== END 2019-04-28 00:10 | disposition home or self-care (01) ==
LOC: ER 04-28 00:09
PROVIDERS: Emergency Provider Student in an Organized Health Care Education/Training Program; PCP Student in an Organized Health Care Education/Training Program
DX: K13.0 Diseases of lips (principal)
CPT/HCPCS: 10160

== ENCOUNTER 2020-09-13 01:58 | Outpatient (CLI) | payer OTHER, SELFPAY ==
--- NOTE | 2020-09-13 | DI.MAMMO_ITS ---
Exam(s) MAMMO SCREENING EXAM: MAMMO SCREENING CLINICAL HISTORY: SCREENING, Z12.39. TECHNIQUE: Bilateral full field digital CC and MLO mammographic images were obtained with 3D tomosyn thesis and utilizing computer aided detection (CAD). COMPARISON: Prior mammograms dating back to 2013, the most recent being March 2019. FINDINGS: There has been no significant change in the appearance and distribution of the fibroglandular tissue. There are no new spiculated masses nor malignant appearing microcalcification groups. Benign-appearing microcalcification group anteriorly in the left breast is unchanged from prior studi es. There is no significant architectural distortion nor skin thickening-retraction. IMPRESSION: Stable benign findings. No radiographic evidence of malignancy. BI-RADS Category 2 - Benign Findings Breast Density - Category B - Scattered areas of fibroglandular density Breast density Category C or D implies that the patient has dense breast tissue. Dense breast tissue can make it harder to find cancer on a mammogram. Dense breast tissue is also associated with an incr eased risk of breast cancer. This information about the result of the mammogram report was provided to the patient to raise their awareness. Use this report when you speak with the patient about their risks for breast cancer, which includes their family history. At that time, you may recommend additional screening tests (Ultrasoun d or MRI) as these tests may add significant information. A negative radiographic report should not delay biopsy if a dominant or clinically suspicious mass is present. Up to ten percent of cancers are not identified on mammography. A negative report may reinforce clinical impression. Adenosis and dense breasts may obscure an underlying neoplasm. False positive reports average 6 to 10%. Patient will receive a letter notifying them of these results.
== END 2020-09-13 02:18 ==
PROVIDERS: PCP Student in an Organized Health Care Education/Training Program; Visit Provider Student in an Organized Health Care Education/Training Program
DX: Z12.31 Encounter for screening mammogram for malignant neoplasm of breast (principal)
CPT/HCPCS: 77063; 77067

== ENCOUNTER 2021-02-16 16:35 | Emergency (ER) | payer OTHER, MEDICAID, SELFPAY ==
[2021-02-16] VITALS (47 sets, daily range): BP systolic 111–157; BP diastolic 48–96; PULSE 78–100; RESP 14–26; TEMP 36.4–36.6; O2SAT 93–97
--- NOTE | 2021-02-16 16:30 | RT.EKG_ITS ---
APPROVED REPORT Exam: Resting ECG Reason for Exam: rapid heart rate Patient Location: E HR:92 bpm ECG Measurements Heart Rate 92 AXIS MS 218 P 34 QRSd 104 QRS -40 QT 376 T 29 QTc 464 Conclusion Sinus rhythm. Prolonged MS interval...MS >205, Left anterior fascicular block
--- NOTE | 2021-02-16 16:45 | DI.RAD_ITS ---
Exam(s) XR CHEST 2V PA LATERAL EXAM: XR CHEST 2V PA LATERAL CLINICAL HISTORY: chest pain. TECHNIQUE: 2D digital imaging was performed. COMPARISON: CR CHEST 2 VIEWS PA,LAT from 03/18/2015 FINDINGS: Heart size is normal. The mediastinum is not widened. Lungs are clear. No infiltrates nor pleural effusions. IMPRESSION: No acute pulmonary findings. DATA REPOSITORY: RADIATION DOSE DELIVERED:
[2021-02-16 17:08] LABS: Abs Immature Grans 0.04 10^3/uL (0.0-0.06); Absolute Basophil Count 0.06 10^3/uL (0.0-0.2); Absolute Eosinophil Count 0.15 10^3/uL (0.0-0.7); Absolute Lymphocyte Count 2.22 10^3/uL (1.2-3.4); Absolute Monocyte Count 0.83 10^3/uL (0.1-0.8); Absolute Neutrophil Count 6.65 10^3/uL (1.2-6.7); Basophils % 0.6; Eosinophils % 1.5; HCT 44.2 % (36.0-46.0); HGB 14.9 g/dL (11.2-15.7); Immature Grans % 0.4; Lymphocytes % 22.3; MCH 30.6 pg (27.0-33.0); MCHC 33.7 % (32.0-36.0); MCV 90.8 fL (80-95); MPV 10.7 fL (8.0-11.0); Monocytes % 8.3; Neutrophils % 66.9; Nucleated RBC 0 %; Platelet Count 252 10^3/uL (130-400); RBC 4.87 10^6/uL (3.93-5.22); RDW 12.7 % (11.7-14.6); RDW-SD 41.8 fL; WBC 9.95 10^3/uL (4.4-10.8)
[2021-02-16 17:35] LABS: ALT 33 U/L (14-59); AST 13 U/L (15-37); Albumin 4.1 g/dL (3.4-5.0); Alkaline Phosphatase 99 U/L (46-116); Anion Gap 10.8 mmol/L (3-11); BUN 15 mg/dL (7-18); Bilirubin, Total 0.3 mg/dL (0.2-1.0); CO2 28.2 mmol/L (21.0-32.0); CREATININE 0.7 mg/dL (0.55-1.02); Chloride 102 mmol/L (98-107); Glucose 140 mg/dL (74-106); Magnesium 1.8 mg/dL (1.8-2.4); NT-proBNP 22 pg/mL (<300); Potassium 3.9 mmol/L (3.5-5.1); Sodium 141 mmol/L (136-145); TSH (W/Ref FT4) 1.52 uIU/mL (0.36-3.74); Total Protein 8.3 g/dL (6.4-8.2)
[2021-02-16 17:36] LABS: Troponin I < 0.05 ng/mL (<0.06)
--- NOTE | 2021-02-16 17:45 | DI.VRAD_ITS ---
PROCEDURE INFORMATION: Exam: XR Chest Exam date and time: 02/16/2021 5:01 PM Age: 45 years old Clinical indication: Pain; Chest pressure TECHNIQUE: Imaging protocol: XR of the chest. Views: 2 views. COMPARISON: CT [facility] CTA 11/26/2018 2:28 PM FINDINGS: Lungs: Clear lungs. Pleural spaces: No sizable pleural effusion. No pneumothorax. Heart/Mediastinum: Cardiomediastinal silhouette is within normal limits. Bones/joints: No acute displaced fracture or dislocation. IMPRESSION: No acute cardiopulmonary process. Dictated and Authenticated by: Willie Centeno MD. Ordering:GINA Farias MD
--- NOTE | 2021-02-16 18:18 | ED.GENADUL_ITS ---
Discharge Plan Disposition Patient Disposition: HOME Condition: Stable Discharge Details Clinical Impression: Heart palpitations Primary Care Provider: Monica Billy ED Provider: Dinora Allen Home Meds and New Rx's Prescriptions: New sucralfate [Carafate] 1 gram tablet 1 g PO BID Qty: 30 RF: 0 omeprazole magnesium [Prilosec OTC] 20 mg tablet,delayed release (DR/EC) 20 mg PO DAILY Qty: 30 RF: 0 Continued metformin 500 MG tablet 1,000 mg PO BID RF: 0 levothyroxine 100 MCG tablet 100 mcg PO DAILY RF: 0 bupropion HCl 150 MG tablet extended release 24 hr 150 mg PO BID RF: 0 losartan 50 MG tablet 1 tab PO DAILY RF: 0 Trulicity 1.5 mg/0.5 mL Pen Injector 1.5 mg SUBCUT RF: 0 acetaminophen 500 mg Tablet 1,000 mg PO PRN PRNRF: 0 metoprolol tartrate 50 mg Tablet 50 mg PO DAILY AM RF: 0 Eliquis 5 mg Tablet 5 mg PO BID RF: 0 Discharge Instructions Instructions: Heart Palpitations (ED) Additional Instructions: Continue on your Eliquis follow-up 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 take carafate and prilosec as prescribed return earlier with new or worsening complaints Discharge Data Discharge Date/Time-TO BE ENTERED AT DEPARTURE: 02/16/21 21:02 Medical Decision Making Patient is resting comfortably, resting and exertional HR not > 90 Heart score of three with 2 - troponins and EKG without acute abnormality We'll follow up with cardiology on Thursday We'll follow up pCP on Thursday Asymptomatic throughout encounter We'll continue on Eliquis and metoprolol Given to return with new or worsening complaints today Diagnostic laboratory acute abnormality, chest x-ray reevaluation any abnormality per radiology interpretation my review HPI General Mode of arrival: ambulatory . Date/Time Provider Initiated Documentation: 02/16/21 16:36 . Limitations to Documentation: no limitations . Information obtained by: patient . HPI Narrative: 45-year-old female presents with calcification and hernia. She is concerned that she has been in atrial fibrillation again. She has history of paroxysmal atrial fibrillation, metabolic syndrome. She denies any chest pain but has had indigestion which she is describing. 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 She states after she eats down her symptoms mainly when she is. She describes burning sensation. She does not have pain currently she did take an extra grams from her metoprolol just prior to arrival. She is feeling symptomatically improved at this time. Denies nausea, vomiting, diaphoresis. Related Data Home Medications Medication Instructions Recorded Confirmed bupropion HCl 150 mg PO BID 08/31/13 02/16/21 levothyroxine 100 mcg PO DAILY 08/31/13 02/16/21 metformin 1,000 mg PO BID 08/31/13 02/16/21 losartan 1 tab PO DAILY 03/18/15 02/16/21 Eliquis 5 mg PO BID 02/22/19 02/16/21 Trulicity 1.5 mg SUBCUT 04/27/19 acetaminophen 1,000 mg PO PRN PRN 04/27/19 02/16/21 metoprolol tartrate 50 mg PO DAILY AM 04/27/19 02/16/21 omeprazole magnesium [Prilosec OTC] 20 mg PO DAILY #30 tab 02/16/21 sucralfate [Carafate] 1 g PO BID #30 tab 02/16/21 Previous Rx's Medication Instructions Recorded omeprazole magnesium [Prilosec OTC] 20 mg PO DAILY #30 tab 02/16/21 sucralfate [Carafate] 1 g PO BID #30 tab 02/16/21 Allergies Allergy/AdvReac Type Severity Reaction Status Date / Time lisinopril AdvReac Mild cough Unverified 02/16/21 16:46 General Stated Complaint: Palpitatns YAMILKA: 2 Review of Systems All systems reviewed & are unremarkable except as noted in HPI and below PFSH Medical History (Updated 02/16/21 @ 20:53 by QUAN Benito) Depression Diabetes HTN (hypertension) Hx of hyperlipidemia Surgical History No significant past surgical history Social History Smoking/Tobacco Use Status: Never Smoking risk assessment performed?: Yes Alcohol Intake: current Alcohol Intake frequency: holidays/special occasions only Drug use: Never Substance use type: does not use Do you feel safe at home: Yes Do you feel safe in your relationship?: Yes Exam Const General: cooperative Orientation: alert and oriented x3 Eyes Pupils: PERRL Resp Effort & Inspection: normal respiratory effort Auscultation: clear to auscultation bilaterally Cardio Rate: regular rate Rhythm: regular rhythm GI Inspection: normal to inspection Auscultation: normal bowel sounds Skin General skin exam: no rashes or lesions noted Neuro General: patient alert and patient oriented x3 Extrem Other: Distal pulses intact no calf swelling or tenderness appreciated Course Vital Signs Vital signs: Vital Signs Temperature 36.4 C L 02/16/21 16:39 Pulse 97 H 02/16/21 16:39 Respiratory Rate 18 02/16/21 16:39 Blood Pressure 157/87 H 02/16/21 16:39 Pulse Oximetry 97 02/16/21 16:39 Temperature 36.4 C L 02/16/21 16:39 Temperature Source Tympanic 02/16/21 16:39 Pulse 83 02/16/21 17:50 Pulse 86 02/16/21 17:51 Respiratory Rate 21 02/16/21 17:51 Respiratory Effort 02/16/21 16:57 Blood Pressure 127/76 02/16/21 17:50 Blood Pressure Mean 85 02/16/21 17:50 Pulse Oximetry 95 02/16/21 18:00 Oxygen Delivery Method Room Air 02/16/21 16:39 Oxygen Flow Rate 0 02/16/21 16:39 Pain Level 0 02/16/21 16:39 Lab/Test Results Lab/Test Results: Laboratory Tests Range/Units 02/16/21 02/16/21 17:00 17:00 WBC (4.4-10.8) 10^3/uL 9.95 RBC (3.93-5.22) 10^6/uL 4.87 Hgb (11.2-15.7) g/dL 14.9 Hct (36.0-46.0) % 44.2 MCV (80-95) fL 90.8 MCH (27.0-33.0) pg 30.6 MCHC (32.0-36.0) % 33.7 RDW (11.7-14.6) % 12.7 Plt Count (130-400) 10^3/uL 252 MPV (8.0-11.0) fL 10.7 Immature Gran % 0.4 Neutrophils % 66.9 Lymphocytes % 22.3 Monocytes % 8.3 Eosinophils % 1.5 Basophils % 0.6 Nucleated RBC % % 0 Absolute Neutrophils (1.2-6.7) 10^3/uL 6.65 Absolute Lymphocytes (1.2-3.4) 10^3/uL 2.22 Absolute Monocytes (0.1-0.8) 10^3/uL 0.83 H Absolute Eosinophils (0.0-0.7) 10^3/uL 0.15 Absolute Basophils (0.0-0.2) 10^3/uL 0.06 Sodium (136-145) mmol/L 141 Potassium (3.5-5.1) mmol/L 3.9 Chloride (98-107) mmol/L 102 Carbon Dioxide (21.0-32.0) mmol/L 28.2 Anion Gap (3-11) mmol/L 10.8 BUN (7-18) mg/dL 15 Creatinine (0.55-1.02) mg/dL 0.7 Estimated GFR/1.73 m2 (mL/min/1.73m2) >= 60.00 Glucose (74-106) mg/dL 140 H Calcium (8.5-10.1) mg/dL 9.0 Magnesium (1.8-2.4) mg/dL 1.8 Total Bilirubin (0.2-1.0) mg/dL 0.3 AST (15-37) U/L 13 L ALT (14-59) U/L 33 Alkaline Phosphatase (46-116) U/L 99 Troponin I (<0.06) ng/mL < 0.05 NT-Pro-B Natriuret Pep (<300) pg/mL 22 Total Protein (6.4-8.2) g/dL 8.3 H Albumin (3.4-5.0) g/dL 4.1 TSH (0.36-3.74) uIU/mL 1.52
--- NOTE | 2021-02-16 19:00 | RT.EKG_ITS ---
APPROVED REPORT Exam: Resting ECG Reason for Exam: confusion Patient Location: E HR:79 bpm ECG Measurements Heart Rate 79 AXIS DC 172 P 0 QRSd 96 QRS -36 QT 409 T 6 QTc 468 Conclusion Sinus rhythm...normal P axis Left axis deviation.
--- NOTE | 2021-02-16 19:03 | NUR.NOTE ---
Nursing Note: Report received from Zunilda Apple RN. Patient resting in bed at this time, alert and oriented. Denies pain at this time. at bedside. Denies any needs at this time. Call light within reach.
[2021-02-16 20:41] LABS: Troponin I < 0.05 ng/mL (<0.06)
== END 2021-02-16 21:02 | disposition home or self-care (01) ==
PROVIDERS: Emergency Provider Physician Assistant; PCP Student in an Organized Health Care Education/Training Program
DX: R00.2 Palpitations (principal); K30 Functional dyspepsia
CPT/HCPCS: 36415; 80053; 93005; 99285; 71046; 83735; 83880; 84443; 84484; 85025; 93010; 99284

== ENCOUNTER → 2021-09-18 03:23 | Outpatient (CLI) | payer OTHER, MEDICAID, SELFPAY ==
--- NOTE | 2021-09-18 12:59 | DI.MAMMO_ITS ---
Exam(s) MAMMO SCREENING EXAM: MAMMO SCREENING CLINICAL HISTORY: SCREENING, AUTH #[id number] TECHNIQUE: Mammograms were interpreted according to the usual protocol including computer analysis w [employer] CAD system, tomosynthesis and C-view imaging. COMPARISON: FINDINGS: The breasts are of moderate density with fairly symmetrical distribution of fibroglandular tissue. N o dominant mass or clumped microcalcification is identified in either breast. The current examinatio n is compared with previous examinations including August 2020 and there has been no gross interval mcclain ge in appearance in comparison with the prior studies. IMPRESSION: No specific evidence of malignancy at this time. Routine screening examinations are suggested at yea rly intervals due to the family history of breast carcinoma. BI-RADS Category 1 - Negative Breast Density - Category B - Scattered areas of fibroglandular density
== END ==
PROVIDERS: PCP Student in an Organized Health Care Education/Training Program; Visit Provider Student in an Organized Health Care Education/Training Program
DX: Z12.31 Encounter for screening mammogram for malignant neoplasm of breast (principal); Z80.3 Family history of malignant neoplasm of breast
CPT/HCPCS: 77063; 77067

== ENCOUNTER 2022-10-13 02:41 | Outpatient (CLI) | payer MEDICAID, SELFPAY ==
--- NOTE | 2022-10-13 | DI.MAMMO_ITS ---
Exam(s) MAMMO SCREENING EXAM: MAMMO SCREENING CLINICAL HISTORY: SCREENING, Z12.39 [id number] TECHNIQUE: Bilateral full field digital CC and MLO mammographic images were obtained with 3D tomosyn thesis and utilizing computer aided detection (CAD). COMPARISON: Available for comparison. FINDINGS: Masses/Architectural Distortion: None seen. Microcalcifications: No suspicious pleomorphic-type are seen. Skin Thickening/Nipple Retraction: None. IMPRESSION: 1. No significant interval change with no specific features of malignancy noted. 2. Unless there is more urgent need, screening mammography is recommended, as per [employer] guidelines. BI-RADS Category 1 - Negative Breast Density - Category B - Scattered areas of fibroglandular density Breast density category C or D implies that the patient has dense breast tissue. Dense breast tissue is very common and is not abnormal but dense breast tissue can make it harder to find cancer on a ma mmogram. Also, dense breast tissue may increase their breast cancer risk. This information about the result of the mammogram report was provided to the patient to raise their awareness. Use this report when you speak with the patient about their risks for breast cancer, which includes their family hist ory. At that time, you may recommend for more screening tests (Ultrasound or MRI) as they might be us eful based on their risk. A negative radiographic report should not delay biopsy if a dominant or clinically suspicious mass is present. Up to ten percent of cancers are not identified on mammography. A negative report may reinforce clinical impression. Adenosis and dense breasts may obscure an underlying neoplasm. False positive reports average 6 to 10%. Patient will receive a letter notifying them of these results.
== END 2022-10-13 03:01 ==
LOC: DI 02:41
PROVIDERS: PCP Student in an Organized Health Care Education/Training Program; Visit Provider Student in an Organized Health Care Education/Training Program
DX: Z12.31 Encounter for screening mammogram for malignant neoplasm of breast (principal)
CPT/HCPCS: 77063; 77067

== ENCOUNTER 2023-05-10 15:51 | Emergency (ER) | payer OTHER, SELFPAY ==
[2023-05-10 15:57] VITALS: BP 176/92; PULSE 89; RESP 18; TEMP 37.2; O2SAT 99
--- NOTE | 2023-05-10 16:30 | DI.CT_ITS ---
Exam(s) CT HEAD WO EXAM: CT HEAD WO CLINICAL HISTORY: trauma, fall posterior head impact, on eliquis. TECHNIQUE: Imaging Protocol: Axial computed tomography images with coronal and sagittal reformatted images were created and reviewed COMPARISON: No exams were available for comparison FINDINGS: Ventricles and Extra axial spaces: Normal in size and morphology for the patient's age. Hemorrhage: None. Cerebral parenchyma: No evidence of acute infarct or mass. Midline shift: None. Brainstem/Cerebellum: Normal. Calvarium: Normal. Visualized Paranasal sinuses:Mucous within both maxillary sinuses, right greater than left. Mastoids: Clear. Soft Tissues: Unremarkable. ORBITS: Unremarkable. PITUITARY: Normal. IMPRESSION: No acute intracranial process. RADIATION DOSE DELIVERED: 694.16mGy.cm Total DLP DATA REPOSITORY: All CT scans at this facility are submitted to the National Radiology Data Registry (NRDR) Dose Index Registry (DIR) with the [employer] ([employer]). RADIATION OPTIMIZATION: All CT scans at this facility use at least one of these dose optimization te chniques: automated exposure control; mA and/or kV adjustment per patient size (includes targeted exa ms where dose is matched to clinical indication); or iterative reconstruction.
--- NOTE | 2023-05-10 17:02 | DI.VRAD_ITS ---
PROCEDURE INFORMATION: Exam: CT Head Without Contrast Exam date and time: 05/10/2023 4:44 PM Age: 47 years old Clinical indication: Injury or trauma; Fall; Blunt trauma (contusions or hematomas); Injury date: 05/10/23; Injury details: Fell backwards on ice ealier today TECHNIQUE: Imaging protocol: Computed tomography of the head without contrast. COMPARISON: No relevant prior studies available. FINDINGS: Brain: Normal. No hemorrhage. Unremarkable white matter. No mass effect. Cerebral ventricles: No ventriculomegaly. Paranasal sinuses: There are frothy secretions in bilateral maxillary sinuses. The remaining paranasal sinuses are clear. Mastoid air cells: Visualized mastoid air cells are well aerated. Bones/joints: Unremarkable. No acute fracture. Soft tissues: Unremarkable. IMPRESSION: No intracranial posttraumatic changes. Dictated and Authenticated by: Saturnino Varghese MD. Ordering:RAMSEY Bolaños MD
--- NOTE | 2023-05-10 17:11 | ED.GENADUL_ITS ---
HPI General Mode of arrival: ambulatory . Date/Time Provider Initiated Documentation: 05/10/23 15:53 . Limitations to Documentation: no limitations . Information obtained by: patient . HPI Narrative: 47-year-old female presents with chief complaint of head injury. Patient notes earlier this afternoon she slipped and fell on ice while trying to help her relative who had fallen. She landed on her back and hit the back of her head on the ground. She did not lose consciousness. She has no visual changes. No numbness or tingling. She does note mild occipital headache. Patient notes she is on Eliquis and has been taking as prescribed. Related Data Home Medications Medication Instructions Recorded Confirmed bupropion HCl 150 mg 24 hr tablet, 150 mg PO BID 08/31/13 05/10/23 extended release levothyroxine 100 mcg tablet 100 mcg PO DAILY 08/31/13 05/10/23 metformin 500 mg tablet 1,000 mg PO BID 08/31/13 05/10/23 losartan 50 mg tablet 75 mg PO DAILY 03/18/15 05/10/23 apixaban 5 mg tablet (Eliquis) 5 mg PO BID 02/22/19 05/10/23 acetaminophen 500 mg tablet 1,000 mg PO PRN PRN 04/27/19 05/10/23 metoprolol tartrate 50 mg tablet 100 mg PO DAILY 04/27/19 05/10/23 ascorbic acid (vitamin C) 500 mg 500 mg PO DAILY 05/10/23 05/10/23 chewable tablet (Acerola C) atomoxetine 10 mg capsule 10 mg PO DAILY 05/10/23 05/10/23 atorvastatin 20 mg tablet 20 mg PO DAILY 05/10/23 05/10/23 empagliflozin 25 mg tablet 25 mg PO DAILY 05/10/23 05/10/23 (Jardiance) ferrous sulfate 325 mg (65 mg 325 mg PO DAILY 05/10/23 05/10/23 iron) tablet (Feosol) semaglutide 1 mg/dose (4 mg/3 mL) 1 mg subcut QWEEK 05/10/23 05/10/23 subcutaneous pen injector (Ozempic) Allergies Allergy/AdvReac Type Severity Reaction Status Date / Time lisinopril AdvReac Mild cough Unverified 05/10/23 16:00 General Stated Complaint: HeadInjury YAMILKA: 4 Review of Systems All systems reviewed & are unremarkable except as noted in HPI and below Neurologic Neurologic: Reports as per HPI Exam Const General: cooperative and no acute distress HENMT Head: no palpable skull fracture, normocephalic, atraumatic, no White's sign, no hematomas, no lacerations, no occipital foramen tenderness and no raccoon eyes Mouth: moist mucous membranes Eyes EOM: EOM intact bilaterally Neck Neck: trachea midline and supple Resp Auscultation: clear to auscultation bilaterally, no rales, no rhonchi and no wheezes Cardio Rate: regular rate and not tachycardic Rhythm: regular rhythm GI Palpation: soft, not firm, no guarding, no masses, not rigid and nontender Skin General skin exam: no rashes or lesions noted Neuro General: patient alert, patient awake and tone normal Cranial Nerves: PERRL, accommodation normal, EOM intact bilaterally, no nystagmus, facial strength normal, tongue midline, able to rotate head bilaterally, able to elevate shoulders bilaterally and symmetric palate elevation Cognition: normal cognition Speech: speech normal Gait: normal gait Motor: strength 5/5 throughout Sensory Exam: no sensory deficits noted Extrem General: no edema Psych Appearance: grossly normal Mental Status: mental status grossly normal Course Vital Signs Vital signs: Vital Signs Temperature 37.2 C 05/10/23 15:57 Pulse 89 05/10/23 15:57 Respiratory Rate 18 05/10/23 15:57 Blood Pressure 176/92 H 05/10/23 15:57 Pulse Oximetry 99 05/10/23 15:57 Temperature 37.2 C 05/10/23 15:57 Temperature Source Temporal Artery Scan 05/10/23 15:57 Pulse 89 05/10/23 15:57 Respiratory Rate 18 05/10/23 15:57 Respiratory Effort Normal, Non-Labored 05/10/23 16:35 Respiratory Depth Normal 05/10/23 16:35 Respiratory Pattern Normal 05/10/23 16:35 Blood Pressure 176/92 H 05/10/23 15:57 Blood Pressure Position Sitting 05/10/23 15:57 Pulse Oximetry 99 05/10/23 15:57 Oxygen Delivery Method Room Air 05/10/23 15:57 Oxygen Flow Rate 0 05/10/23 15:57 Pain Level 1 05/10/23 16:35 Medical Decision Making 47-year-old female on Eliquis for atrial fibrillation, here after slip and fall with from standing to the ground with posterior head injury. Patient is neurologically intact. She did not lose consciousness. She has mild posterior headache. She is neurologically intact. Considered acute life-threatening intracranial traumatic hemorrhage. CT of the head was interpreted by radiology: No acute intracranial posttraumatic changes. Patient reassessed and remains neurologically intact. We discussed potential of delayed bleeding and we will plan to hold Eliquis tonight. I will have her contact her PCP tomorrow to discuss ongoing dosing. Patient notes that her A-fib has been very well-controlled on metoprolol. We discussed risk benefit and she agrees with holding tonight as part of an informed decision making and will also hold tomorrow until she speaks with her prescribing primary care physician. She was instructed to return immediately should she have any worsening or new c oncerning symptoms. Patient verbalized understanding of discharge instructions. Quality:SDOH Health Related Social Needs: No Data to Display PFSH All Active Problems Fall from slipping on ice (Acute) Acute head trauma (Acute) Heart palpitations (Acute) Medical History Depression Hx of hyperlipidemia HTN (hypertension) Diabetes Surgical History No significant past surgical history Social History Smoking/Tobacco Use Status: Never Smoking risk assessment performed?: Yes Alcohol Intake: current Alcohol Intake frequency: holidays/special occasions only Drug use: Never Substance use type: does not use Do you feel safe at home: Yes Do you feel safe in your relationship?: Yes Discharge Plan Disposition Patient Disposition: Home Condition: Stable Discharge Details Clinical Impression: Acute head trauma, Fall from slipping on ice Primary Care Provider: Monica Billy ED Provider: Miky Almaraz Home Meds and New Rx's Prescriptions: Continued metformin 500 MG tablet 1,000 mg PO BID levothyroxine 100 MCG tablet 100 mcg PO DAILY bupropion HCl 150 MG tablet extended release 24 hr 150 mg PO BID losartan 50 MG tablet 75 mg PO DAILY acetaminophen 500 mg Tablet 1,000 mg PO PRN PRN metoprolol tartrate 50 mg Tablet 100 mg PO DAILY Ozempic 1 mg/dose (4 mg/3 mL) pen injector 1 mg subcut QWEEK Jardiance 25 mg tablet 25 mg PO DAILY atorvastatin 20 mg tablet 20 mg PO DAILY ferrous sulfate [Feosol] 325 mg (65 mg iron) tablet 325 mg PO DAILY ascorbic acid (vitamin C) [Acerola C] 500 mg tablet,chewable 500 mg PO DAILY atomoxetine 10 mg capsule 10 mg PO DAILY Held Eliquis 5 mg Tablet 5 mg PO BID Hold Instructions: Resume on 05/12/23. Hold this medication until discussed with your doctor Discontinued Trulicity 1.5 mg/0.5 mL Pen Injector 1.5 mg SUBCUT ONCE sucralfate [Carafate] 1 gram tablet 1 g PO BID Qty: 30 0RF omeprazole magnesium [Prilosec OTC] 20 mg tablet,delayed release (DR/EC) 20 mg PO DAILY Qty: 30 0RF Discharge Instructions Instructions: Head Injury (ED) Additional Instructions: Please hold your Eliquis dose tonight. Call your doctor tomorrow for clearance to restart this medication. Return to Emergency Department immediately for any worsening or new concerning symptoms including worsening headache, confusion, visual changes or other concerning symptom. Referrals: Monica Billy [Primary Care Provider] -
== END 2023-05-10 17:28 | disposition home or self-care (01) ==
LOC: ER 17:29
PROVIDERS: Emergency Provider Student in an Organized Health Care Education/Training Program; PCP Student in an Organized Health Care Education/Training Program
DX: S09.8XXA Other specified injuries of head, initial encounter (principal); I48.0 Paroxysmal atrial fibrillation; I10 Essential (primary) hypertension; E78.5 Hyperlipidemia, unspecified; E11.9 Type 2 diabetes mellitus without complications; Z79.01 Long term (current) use of anticoagulants; Z79.84 Long term (current) use of oral hypoglycemic drugs; Z79.85 Long-term (current) use of injectable non-insulin antidiabetic drugs; W00.0XXA Fall on same level due to ice and snow, initial encounter; Y93.01 Activity, walking, marching and hiking; Y92.89 Other specified places as the place of occurrence of the external cause
CPT/HCPCS: 99284; 70450

== ENCOUNTER → 2023-10-16 00:42 | Outpatient (CLI) | payer OTHER, SELFPAY ==
--- NOTE | 2023-10-16 | DI.MAMMO_ITS ---
Exam(s) MAMMO SCREENING EXAM: MAMMO SCREENING CLINICAL HISTORY: SCREENING, Z12.31,[id number] TECHNIQUE: Bilateral full field digital CC and MLO mammographic images were obtained with 3D tomosyn thesis and utilizing computer aided detection (CAD). COMPARISON: Available for comparison. FINDINGS: Masses/Architectural Distortion: None seen. Microcalcifications: No suspicious pleomorphic-type are seen. Skin Thickening/Nipple Retraction: None. IMPRESSION: 1. No significant interval change with no specific features of malignancy noted. 2. Unless there is more urgent need, screening mammography is recommended, as per [employer] guidelines. BI-RADS Category 1 - Negative Breast Density - Category B - Scattered areas of fibroglandular density Breast density category C or D implies that the patient has dense breast tissue. Dense breast tissue is very common and is not abnormal but dense breast tissue can make it harder to find cancer on a ma mmogram. Also, dense breast tissue may increase their breast cancer risk. This information about the result of the mammogram report was provided to the patient to raise their awareness. Use this report when you speak with the patient about their risks for breast cancer, which includes their family hist ory. At that time, you may recommend for more screening tests (Ultrasound or MRI) as they might be us eful based on their risk. A negative radiographic report should not delay biopsy if a dominant or clinically suspicious mass is present. Up to ten percent of cancers are not identified on mammography. A negative report may reinforce clinical impression. Adenosis and dense breasts may obscure an underlying neoplasm. False positive reports average 6 to 10%. Patient will receive a letter notifying them of these results.
== END ==
PROVIDERS: PCP Student in an Organized Health Care Education/Training Program; Visit Provider Student in an Organized Health Care Education/Training Program
DX: Z12.31 Encounter for screening mammogram for malignant neoplasm of breast (principal)
CPT/HCPCS: 77063; 77067

== ENCOUNTER 2024-01-06 02:28 | Outpatient (CLI) | payer OTHER, SELFPAY ==
--- NOTE | 2024-01-06 | DI.MAMMO_ITS ---
Exam(s) MG MAMMO DIAGNOSTIC UNI US BREAST RT COMPLETE EXAM: MG MAMMO DIAGNOSTIC UNI-RIGHT AND COMPLETE RIGHT BREAST ULTRASOUND CLINICAL HISTORY: [facility] AUTH# [id number] RT NIPPLE DARK/BLOOD DISCHARGE N54.52. TECHNIQUE: Unilateral RIGHT BREAST CC AND MLO AND SPOT mammographic images were obtained with 3D dafne osynthesis technique and utilizing computer aided detection (CAD). COMPLETE RIGHT BREAST ULTRASOUND was performed including all 4 quadrants as well as the right axilla COMPARISON: Prior mammograms were reviewed, the most recent being 10/16/2023. Patient states that she has had chronic bilateral nonbloody nipple discharge approximately 10 years s jose last child. However, recently in the last month see is noticed some rust-colored /possible bl oody discharge from the breast. FINDINGS: DIAGNOSTIC RIGHT BREAST MAMMOGRAM: There has been no significant change in the appearance and distribution of the fibroglandular tissue of the right breast. There are no CAD designations. There are no spiculated masses nor malignant-appearing microcalcification groups. There is no signif icant architectural distortion or skin thickening-retraction. Additional spot view of the retroareolar region does not reveal significant findings. COMPLETE RIGHT BREAST ULTRASOUND: There is no evidence of solid or significant cystic lesions in all 4 quadrants. There is a solitary small 4 x 3 mm microcyst at the 4 o'clock position approximately 3 cm in from the nipple. Scanning of the retroareolar region does not reveal dilated ducts nor evidence of obvious papilloma. Scanning of the right axilla is negative for significant adenopathy IMPRESSION: 1. No radiographic evidence of malignancy in the right breast. 2. Negative right breast ultrasound with the exception of a benign 4 mm microcyst at the 4 o'clock po sition Appropriate follow-up as discussed by myself with the patient today is possible referral to breast sorto rgeon because of bloody unilateral nipple discharge. Also recommend sampling the bloody nipple disch arge for cytology microbiology. The patient was informed of the findings and follow-up recommendations by myself prior to leaving the department today. BI-RADS Category 4 - Suspicious Abnormality: Recommendations as above Breast Density - Category B - Scattered areas of fibroglandular density Breast density Category C or D implies that the patient has dense breast tissue. Dense breast tissue can make it harder to find cancer on a mammogram. Dense breast tissue is also associated with an incr eased risk of breast cancer. This information about the result of the mammogram report was provided to the patient to raise their awareness. Use this report when you speak with the patient about their risks for breast cancer, which includes their family history. At that time, you may recommend additional screening tests (Ultrasoun d or MRI) as these tests may add significant information. A negative radiographic report should not delay biopsy if a dominant or clinically suspicious mass is present. Up to ten percent of cancers are not identified on mammography. A negative report may reinforce clinical impression. Adenosis and dense breasts may obscure an underlying neoplasm. False positive reports average 6 to 10%. Patient will receive a letter notifying them of these results.
== END 2024-01-06 02:48 ==
PROVIDERS: PCP Student in an Organized Health Care Education/Training Program; Visit Provider Internal Medicine
DX: Z12.31 Encounter for screening mammogram for malignant neoplasm of breast (principal); N62 Hypertrophy of breast
CPT/HCPCS: 76642; 77061; 77065; G0279

== ENCOUNTER 2024-07-18 22:32 | Emergency (ER) | payer OTHER, SELFPAY ==
--- NOTE | 2024-07-18 22:30 | RT.EKG_ITS ---
APPROVED REPORT Exam: Resting ECG Reason for Exam: a fib Patient Location: E HR:101 bpm ECG Measurements Heart Rate 101 AXIS LA 197 P 51 QRSd 94 QRS -27 QT 314 T 74 QTc 407 Conclusion Sinus tachycardia...rate> 99 Borderline prolonged LA interval...LA >197, V-rate 91-[address] [place] Nonspecific ST-T changes There are no significant changes compared to prior EKG performed on 02/16/2021 at 19:13.
--- NOTE | 2024-07-18 22:39 | ED.GENADUL_ITS ---
Discharge Plan Disposition Patient Disposition: Home Condition: Good Discharge Details Clinical Impression: Heart palpitations Primary Care Provider: Monica Billy ED Provider: Bakari Beard [place] Meds and New Rx's Prescriptions: Continued metformin 500 MG tablet 1,000 mg PO BID levothyroxine 100 MCG tablet 100 mcg PO DAILY bupropion HCl 150 MG tablet extended release 24 hr 150 mg PO BID losartan 50 MG tablet 75 mg PO DAILY acetaminophen 500 mg Tablet 1,000 mg PO PRN PRN metoprolol tartrate 50 mg Tablet 100 mg PO DAILY Trulicity 4.5 mg/0.5 mL pen injector 4.5 mg subcut QWEEK Eliquis 5 mg Tablet 5 mg PO BID Jardiance 25 mg tablet 25 mg PO DAILY atorvastatin 20 mg tablet 20 mg PO DAILY ferrous sulfate [Feosol] 325 mg (65 mg iron) tablet 325 mg PO DAILY ascorbic acid (vitamin C) [Acerola C] 500 mg tablet,chewable 500 mg PO DAILY atomoxetine 10 mg capsule 10 mg PO DAILY Discharge Instructions Instructions: Palpitations ED Additional Instructions: You were seen for elevated heart rate and palpitations. Your EKG and monitor shows sinus rhythm on the upper limit of normal in terms of rate. Your laboratory studies are reassuring. Please follow-up with your primary care as you may need some adjusting to your metoprolol. Return to ED if you develop any lightheadedness/fainting, chest pain, shortness of breath, neurologic change, other concerns. Referrals: Monica Billy [Primary Care Provider] - [facility] General Mode of arrival: ambulatory . Date/Time Provider Initiated Documentation: 07/18/24 22:35 . Limitations to Documentation: no limitations . Information obtained by: patient and RN notes reviewed . HPI Narrative: Patient presents to ED with concern for palpitations and heart racing. Patient does have a history of atrial fibrillation. She is not typically in A-fib. She is on metoprolol and Eliquis and has been taking the medications as directed. She has not been ill recently. There is no fever, cough, shortness of breath, chest pain, syncope, vomiting, diarrhea. She did take her metoprolol a couple hours earlier this evening because of the symptoms. She was unsure whether she was in A-fib or not and was a little concerned and anxious and came into ED for evaluation. Related Data Home Medications ?Medication ?Instructions ?Recorded ?Confirmed bupropion HCl 150 mg 24 hr tablet, 150 mg PO BID 08/31/13 07/18/24 extended release levothyroxine 100 mcg tablet 100 mcg PO DAILY 08/31/13 07/18/24 metformin 500 mg tablet 1,000 mg PO BID 08/31/13 07/18/24 losartan 50 mg tablet 75 mg PO DAILY 03/18/15 07/18/24 apixaban 5 mg tablet (Eliquis) 5 mg PO BID 02/22/19 07/18/24 acetaminophen 500 mg tablet 1,000 mg PO PRN PRN 04/27/19 07/18/24 metoprolol tartrate 50 mg tablet 100 mg PO DAILY 04/27/19 07/18/24 ascorbic acid (vitamin C) 500 mg 500 mg PO DAILY 05/10/23 07/18/24 chewable tablet (Acerola C) atomoxetine 10 mg capsule 10 mg PO DAILY 05/10/23 07/18/24 atorvastatin 20 mg tablet 20 mg PO DAILY 05/10/23 07/18/24 empagliflozin 25 mg tablet 25 mg PO DAILY 05/10/23 07/18/24 (Jardiance) ferrous sulfate 325 mg (65 mg 325 mg PO DAILY 05/10/23 07/18/24 iron) tablet (Feosol) dulaglutide 4.5 mg/0.5 mL 4.5 mg subcut QWEEK 07/18/24 07/18/24 subcutaneous pen injector (Trulicity) Allergies Allergy/AdvReac Type Severity Reaction Status Date / Time lisinopril AdvReac Mild cough Unverified 07/18/24 23:01 General YAMILKA: 4 Exam Narrative Exam Narrative: Const: WDWN female in NAD. VS per triage. HEENT: NC/AT. Normal facial exam. Neck: Supple. Trachea midline. Lungs: Normal respiratory effort. Lungs are clear. Cor: RRR without murmur. Good radial pulses. Neuro: A+O x 3. Normal speech, mentation, gait. Cranial nerves II - XII grossly intact. No gross motor or sensory deficit. Medical Decision Making Patient presenting to ED with concern for palpitations and rapid heart rate. She does have a history of atrial fibrillation and is on anticoagulation and beta-crista. She has not experienced any neurologic change, syncope, shortness of breath, chest pain. She has not been recently ill. The palpitations and rapid heart rate concerned her and caused her some anxiety. I have reassured her that even if she is in atrial fibrillation and the fact that she is anticoagulated and rate controlled is exactly what we would want. Her exam is unremarkable. Her EKG per my read is sinus rhythm with nonspecific ST changes and unchanged from previous. I will check a CBC, electrolytes, TSH and monitor her for short time to see if she is having any episodes of paroxysmal A-fib while here. Patient has remained in sinus rhythm while here with rate in the 90s. Laboratory studies are unremarkable. Hemoglobin is actually high at 16, electrolytes are normal other than calcium being slightly elevated. Her TSH is normal. I have reassured her. She should follow-up with primary care. May need to adjust her metoprolol. Continue Eliquis as before. Return precautions discussed and provided. Lab Data Lab results reviewed: Yes I reviewed the patient's lab results. Lab results narrative: see [facility] ECG Data Attestation: I personally reviewed and interpreted this ECG (s) as follows: Prior ECG tracings: available for review Interpretation: see EKG/MDM [facility] All Active Problems (Updated 07/19/24 @ 00:08 by Bakari Beard MD) Heart palpitations (Acute) Medical History Atrial fibrillation Depression Hx of hyperlipidemia HTN (hypertension) Diabetes Surgical History No significant past surgical history Social History Smoking/Tobacco Use Status: Never Smoking risk assessment performed?: Yes Alcohol Intake: current Alcohol Intake frequency: holidays/special occasions only Drug use: Never Substance use type: does not use Do you feel safe at home: Yes Do you feel safe in your relationship?: Yes
[2024-07-18 22:58] VITALS: BP 194/94; PULSE 112; RESP 16; TEMP 36.2; O2SAT 98
[2024-07-18 23:12] LABS: HCT 46.9 % (36.0-46.0); MCH 30.6 pg (27.0-33.0); MCHC 34.1 % (32.0-36.0); MCV 90 fL (80-95); MPV 10.8 fL (8.0-11.0); Platelet Count 230 10^3/uL (130-400); RBC 5.23 10^6/uL (3.93-5.22); RDW 12.4 % (11.7-14.6); RDW-SD 40.9 fL; WBC 8.29 10^3/uL (4.4-10.8)
[2024-07-18 23:38] LABS: Magnesium 1.9 mg/dL (1.8-2.4); TSH (W/Ref FT4) 1.68 uIU/mL (0.36-3.74)
[2024-07-18 23:48] VITALS: PULSE 98; RESP 13; O2SAT 95
[2024-07-18 23:50] LABS: Anion Gap 12.3 mmol/L (3-11); BUN 16 mg/dL (7-18); CO2 25.7 mmol/L (21.0-32.0); Calcium 10.4 mg/dL (8.5-10.1); Chloride 101 mmol/L (98-107); Estimated GFR 69.49 (mL/min/1.73m2); Glucose 183 mg/dL (74-106); Potassium 4.4 mmol/L (3.5-5.1); Sodium 139 mmol/L (136-145)
[2024-07-19 00:20] VITALS: BP 155/93; PULSE 95; RESP 18; O2SAT 96
== END 2024-07-19 00:21 | disposition home or self-care (01) ==
PROVIDERS: Emergency Provider Emergency Medicine; PCP Student in an Organized Health Care Education/Training Program
DX: R00.2 Palpitations (principal); R94.31 Abnormal electrocardiogram [ECG] [EKG]; I10 Essential (primary) hypertension; E78.5 Hyperlipidemia, unspecified; E11.9 Type 2 diabetes mellitus without complications; Z79.84 Long term (current) use of oral hypoglycemic drugs; Z79.85 Long-term (current) use of injectable non-insulin antidiabetic drugs
CPT/HCPCS: 36415; 80048; 85027; 93005; 99284; 83735; 84443; 93010

== ENCOUNTER 2024-10-17 01:29 | Outpatient (CLI) | payer OTHER, SELFPAY ==
--- NOTE | 2024-10-17 15:24 | DI.MAMMO_ITS ---
Exam(s) MAMMO SCREENING EXAM: MAMMO SCREENING CLINICAL HISTORY: [id number] screening Z12.31 TECHNIQUE: Mammograms were interpreted according to the usual protocol including computer analysis with CAD system, tomosynthesis and C-view imaging. COMPARISON: 2015 through 2023 FINDINGS: The breasts are composed of scattered fibroglandular densities, Breast Density category B. No suspicious masses or suspicious microcalcifications are seen. No skin thickening or abnormal axillary lymph nodes are seen. There has been no significant change from prior exams. IMPRESSION: BI-RADS Category 1, Negative mammogram Yearly screening mammography is recommended. Breast Density - Category B - There are scattered areas of fibroglandular density. Breast density Category C or D implies that the patient has dense breast tissue. Dense breast tissue can make it harder to find cancer on a mammogram. Dense breast tissue is also associated with an increased risk of breast cancer. This information about the result of the mammogram report was provided to the patient to raise their awareness. Use this report when you speak with the patient about their risks for breast cancer, which includes their family history. At that time, you may recommend additional screening tests (Ultrasound or MRI) as these tests may add significant information. A negative radiographic report should not delay biopsy if a dominant or clinically suspicious mass is present. Up to ten percent of cancers are not identified on mammography. A negative report may reinforce clinical impression. Adenosis and dense breasts may obscure an underlying neoplasm. False positive reports average 6 to 10%. Patient will receive a letter notifying them of these results.
== END 2024-10-17 01:49 ==
PROVIDERS: PCP Student in an Organized Health Care Education/Training Program; Visit Provider Student in an Organized Health Care Education/Training Program
DX: Z12.31 Encounter for screening mammogram for malignant neoplasm of breast (principal); R92.323 Mammographic fibroglandular density, bilateral breasts
CPT/HCPCS: 77063; 77067

== ENCOUNTER 2025-03-16 16:30 | Emergency (ER) | payer OTHER, SELFPAY ==
[2025-03-16 16:42] VITALS: BP 170/103; PULSE 85; RESP 16; TEMP 36.3; O2SAT 98
[2025-03-16] MEDS: Acetaminophen 500 MG TAB 1000 MG PO (17:22)
--- NOTE | 2025-03-16 17:34 | W.ED.GENAD ---
Discharge Plan Disposition Patient Disposition: Home Condition: Stable Discharge Details Clinical Impression: Fingertip avulsion Primary Care Provider: Monica Billy ED Provider: Yaz Meehan Home Meds and New Rx's Prescriptions: No Action metformin 500 MG tablet 1,000 mg PO BID levothyroxine 100 MCG tablet 100 mcg PO DAILY bupropion HCl 150 MG tablet extended release 24 hr 150 mg PO BID losartan 50 MG tablet 75 mg PO DAILY acetaminophen 500 mg Tablet 1,000 mg PO PRN PRN metoprolol tartrate 50 mg Tablet 100 mg PO DAILY Trulicity 4.5 mg/0.5 mL pen injector 4.5 mg subcut QWEEK Eliquis 5 mg Tablet 5 mg PO BID Jardiance 25 mg tablet 25 mg PO DAILY atorvastatin 20 mg tablet 20 mg PO DAILY ferrous sulfate [Feosol] 325 mg (65 mg iron) tablet 325 mg PO DAILY ascorbic acid (vitamin C) [Acerola C] 500 mg tablet,chewable 500 mg PO DAILY atomoxetine 10 mg capsule 10 mg PO DAILY Discharge Instructions Instructions: Common Finger Injuries ED Additional Instructions: You were seen in the emergency department today for evaluation after cutting the tip of your thumb on a mandolin. In our department a full physical examination performed, the wound was thoroughly cleaned, and we were able to stop the bleeding using a skin glue and tourniquet. The bleeding remained controlled and we placed a dressing. You had a tetanus booster and should continue to use Tylenol, 1000 mg every 6 hours as needed for pain. The skin glue will fall off on its own in a few days, you can reapply a bandage after this and once the glue is off you can continue to use [id number] antibiotic ointment to keep the area clean and healthy. Please monitor for signs of infection, and call your primary care provider especially if you develop redness, fever or chills, worsening pain or any other symptoms that cause you concern. You can always return to the emergency department for reevaluation. Please follow-up with your primary care provider in the next few days to discuss this visit and any symptoms that change, worsen, or persist. Thank you for allowing us to be part of your care. Stand Alone Forms: Portal Information HPI General Mode of arrival: ambulatory. Date/Time Provider Initiated Documentation: 03/16/25 16:49. Limitations to Documentation: no limitations. Information obtained by: patient, family and old records reviewed. HPI Narrative: This is a 49-year-old female patient with a past medical history significant for atrial fibrillation on Eliquis, diabetes, presenting for evaluation after a fingertip injury. The patient was slicing using a mandolin around 10 AM this morning, states that she sliced the lateral edge of her right distal thumb off. She did not involve the nail, and did not injure any other part of her body. She was able to bandage the area after rinsing it in cool water, states that she is here today because she has noted continuous oozing through the bandages. She has not taken any medications for management of pain or discomfort, last tetanus shot over 10 years ago, otherwise in her normal state of health. Her last dose of Eliquis was last night. Related Data Home Medications ?Medication ?Instructions ?Recorded ?Confirmed bupropion HCl 150 mg 24 hr tablet, 150 mg PO BID 08/31/13 03/16/25 extended release levothyroxine 100 mcg tablet 100 mcg PO DAILY 08/31/13 03/16/25 metformin 500 mg tablet 1,000 mg PO BID 08/31/13 03/16/25 losartan 50 mg tablet 75 mg PO DAILY 03/18/15 03/16/25 apixaban 5 mg tablet (Eliquis) 5 mg PO BID 02/22/19 03/16/25 acetaminophen 500 mg tablet 1,000 mg PO PRN PRN 04/27/19 03/16/25 metoprolol tartrate 50 mg tablet 100 mg PO DAILY 04/27/19 03/16/25 ascorbic acid (vitamin C) 500 mg 500 mg PO DAILY 05/10/23 03/16/25 chewable tablet (Acerola C) atomoxetine 10 mg capsule 10 mg PO DAILY 05/10/23 03/16/25 atorvastatin 20 mg tablet 20 mg PO DAILY 05/10/23 03/16/25 empagliflozin 25 mg tablet 25 mg PO DAILY 05/10/23 03/16/25 (Jardiance) ferrous sulfate 325 mg (65 mg 325 mg PO DAILY 05/10/23 03/16/25 iron) tablet (Feosol) dulaglutide 4.5 mg/0.5 mL 4.5 mg subcut QWEEK 07/18/24 03/16/25 [facility] Allergies Allergy/AdvReac Type Severity Reaction Status Date / Time lisinopril AdvReac Mild cough Unverified 07/18/24 23:01 General Stated Complaint: Laceration YAMILKA: 3 Exam Narrative Exam Narrative: Gen: Awake and alert, in no apparent distress HEENT: Non-icteric sclera Neck: Supple Lungs: No apparent respiratory distress, normal respiratory effort. CV: Appears well perfused Abdomen: Non-distended MSK: Moves 4 extremities without apparent limitation in ROM Skin: Visualized skin without rashes, cyanosis. The distal right thumb has an area of skin loss over the lateral aspect of the distal pad of the thumb. The fingernail is not involved, the distal thumb has preserved sensation and there is no evidence of limitation in range of motion or weakness of the affected right thumb. There is punctate oozing bleeding from the wound bed appreciated. Neuro: Normal Gait, no obvious focal deficits or facial asymmetry. Speaks in full, clear sentences. Psych: Appropriate for situation. Course Vital Signs Vital signs: Vital Signs Temperature 36.3 C L 03/16/25 16:42 Pulse 85 03/16/25 16:42 Respiratory Rate 16 03/16/25 16:42 Blood Pressure 170/103 H 03/16/25 16:42 Pulse Oximetry 98 03/16/25 16:42 Temperature 36.3 C L 03/16/25 16:42 Temperature Source Tympanic 03/16/25 16:42 Pulse 85 03/16/25 16:42 Respiratory Rate 16 03/16/25 16:42 Blood Pressure 170/103 H 03/16/25 16:42 Blood Pressure Position Sitting 03/16/25 16:42 Pulse Oximetry 98 03/16/25 16:42 Oxygen Delivery Method Room Air 03/16/25 16:42 Oxygen Flow Rate 0 03/16/25 16:42 Pain Level 10 03/16/25 17:02 Medical Decision Making This is a 49-year-old female patient presenting for evaluation of a finger injury. My exam and differential are most concerning for avulsion. No evidence for nailbed injury, no laceration, no foreign body visualized, and mechanism is not concerning for fracture, dislocation, or neurovascular injury. We will provide the patient with Tylenol and a tetanus booster, I placed a finger tourniquet over the area and cleansed the wound with antiseptic soap and saline pressure irrigation. I applied several layers of skin glue over the wound bed, and after removal of the finger tourniquet note that the wound bed is now hemostatic. We did observe the patient for several minutes after removal of the tourniquet to ensure cessation of bleeding. I counseled the patient on Tylenol use, wound care, and at this time, the patient has had a full medical evaluation and is safe for discharge to home. They are hemodynamically stable, ambulatory, and tolerating PO. They are understanding of the follow-up plan and return precautions. They left our facility without incident. Yaz Meehan MD [facility] All Active Problems (Updated 03/16/25 @ 17:37 by Yaz Meehan MD) Fingertip avulsion (Acute) Heart palpitations (Acute) Medical History Atrial fibrillation Depression Hx of hyperlipidemia HTN (hypertension) Diabetes Surgical History No significant past surgical history Social History Smoking/Tobacco Use Status: Never Smoking risk assessment performed?: Yes Alcohol Intake: current Alcohol Intake frequency: holidays/special occasions only Drug use: Never Substance use type: does not use Housing: house Do you feel safe at home: Yes Do you feel safe in your relationship?: Yes
[2025-03-16] MEDS: Diph,Pertuss(Acell),Tet Vac/Pf 0.5 ML SYR IM (17:50)
== END 2025-03-16 17:51 | disposition home or self-care (01) ==
PROVIDERS: Emergency Provider Emergency Medicine; PCP Student in an Organized Health Care Education/Training Program
DX: S61.011A Laceration without foreign body of right thumb without damage to nail, initial encounter (principal); W27.4XXA Contact with kitchen utensil, initial encounter; Z79.01 Long term (current) use of anticoagulants; Z23 Encounter for immunization
CPT/HCPCS: 90471; 90715; 99284; 99283